=== PATIENT | female | born 1955 | race Caucasian/White ===

== ENCOUNTER 2024-11-28 13:23 | Inpatient (IN) | payer OTHER ==
--- NOTE | 2024-11-28 14:12 | ED ---
Chest Pain HPI - General Source: patient, RN notes reviewed Mode of arrival: wheelchair Limitations: no limitations - History of Present Illness MD Complaint: chest pain <Ken Adame - Last Filed: 11/28/24 14:11> - General Source: patient, RN notes reviewed, old records reviewed Mode of arrival: wheelchair Limitations: no limitations - History of Present Illness Complaint: chest pain, other (Dizziness lightheadedness and near syncopal) -: hour(s) Onset: awoke with symptoms Pain Location: left chest Severity: moderate Severity scale (1-10): 4 Quality: tightness, aching, heaviness Consistency: constant Improves With: nothing Worsens With: nothing Other Symptoms: palpitations Treatments Prior to Arrival: none <Andrew Wheeler - Last Filed: 12/06/24 21:43> - General Chief Complaint: Chest Pain Stated Complaint: Chest pain Time Seen by Provider: 11/28/24 13:40 - History of Present Illness Initial Comments: This is a 69-year-old female with history of AMI and CVA last year presenting with chest pain (8) since this morning. Patient describes pain as pressure across her bilateral chest with associated lightheadedness and shortness of breath radiating to her neck. Endorses use of 2 nitroglycerin with no relief. (Ken Adame) This is a 69-year-old female history of CVA history of NH coming in with chest pain that started this morning with lightheadedness dizziness feeling she was going to pass out this morning persistent shortness of breath here in the ER (Andrew Wheeler) - Related Data Home Medications Medication Instructions Recorded Confirmed ARIPiprazole [Abilify] 2 mg PO DAILY 11/29/24 11/29/24 Albuterol Inhaler [Ventolin Hfa 1 puff INHALATION RT-Q4H PRN 11/29/24 11/29/24 Inhaler] Ammonium Lactate Lotion 1 applic TOPICAL BID 11/29/24 11/29/24 [Lac-Hydrin 12% Lotion] Artificial Tears-Hypromellose 1 drop BOTH EYES Q4H PRN 11/29/24 11/29/24 [Artificial Tear Drops] Aspirin EC [Ecotrin Low Dose] 81 mg PO DAILY 11/29/24 11/29/24 Atorvastatin [Lipitor] 80 mg PO HS 11/29/24 11/29/24 Biotin 10 mg PO DAILY 11/29/24 11/29/24 Buprenorphine [Butrans 20 MCG/HOUR] 1 patch TRANSDERM TU 11/29/24 11/29/24 Cholecalciferol (Vitamin D3) 125 mcg PO DAILY 11/29/24 11/29/24 [Vitamin D3 (125 MCG = 5,000 IU)] Empagliflozin [Jardiance] 10 mg PO DAILY 11/29/24 11/29/24 Escitalopram [Lexapro] 20 mg PO DAILY 11/29/24 11/29/24 Famotidine [Pepcid] 20 mg PO DAILY 11/29/24 11/29/24 Ferrous Sulfate [Iron (65 MG 325 mg PO DAILY 11/29/24 11/29/24 Elemental)] Gabapentin 800 mg PO TID 11/29/24 11/29/24 Levocetirizine Dihydrochloride 5 mg PO DAILY 11/29/24 11/29/24 [Xyzal] Melatonin 5 mg PO HS 11/29/24 11/29/24 Multivit-Min/FA/Lycopen/Lutein 1 tab PO DAILY 11/29/24 11/29/24 [Centrum Silver Tablet] Nitroglycerin Sl Tabs [Nitrostat] 0.4 mg SL Q5M PRN 11/29/24 11/29/24 Nystatin 100,000 Unit/gm Powd 1 applic TOPICAL BID 11/29/24 11/29/24 [Mycostatin Powder] Tirzepatide [Mounjaro] 2.5 mg SQ SA 11/29/24 11/29/24 traZODone HCL 100 mg PO HS 11/29/24 11/29/24 Previous Rx's Medication Instructions Recorded amLODIPine [Norvasc] 5 mg PO DAILY #60 tab 12/01/24 Allergies Allergy/AdvReac Type Severity Reaction Status Date / Time duloxetine [From Cymbalta] Allergy Rash/Hives Verified 11/29/24 10:42 sitagliptin [From Januvia] Allergy Rash/Hives Verified 11/29/24 10:42 Review of Systems ROS Other: All systems not noted in ROS Statement are negative. <Ken Adame - Last Filed: 11/28/24 14:11> ROS Other: All systems not noted in ROS Statement are negative. <Roskopp,Andrew B - Last Filed: 12/06/24 21:43> ROS Statement: Those systems with pertinent positive or pertinent negative responses have been documented in the HPI. EKG Findings - EKG Comments: EKG Findings:: EKG is sinus 66 MI 169 QRS 97 QTc 423 - EKG Results: EKG: interpreted by ERMD, no acute changes (EKG repeated sinus 96 MI 208 QRS 99 QTc 389) <Andrew Wheeler - Last Filed: 12/06/24 21:43> Past Medical History Past Medical History: Asthma, Diabetes Mellitus History of Any Multi-Drug Resistant Organisms: None Reported Past Surgical History: No Surgical Hx Reported Past Psychological History: No Psychological Hx Reported Smoking Status: Never smoker Past Alcohol Use History: None Reported Past Drug Use History: None Reported <Ken Adame - Last Filed: 11/28/24 14:11> General Exam Limitations: no limitations <Ken Adame - Last Filed: 11/28/24 14:11> General appearance: alert, in no apparent distress Head exam: Present: atraumatic, normocephalic, normal inspection Eye exam: Present: normal appearance, PERRL, EOMI. Absent: scleral icterus, conjunctival injection, periorbital swelling ENT exam: Present: normal exam, mucous membranes moist Neck exam: Present: normal inspection. Absent: tenderness, meningismus, lymphadenopathy Respiratory exam: Present: normal lung sounds bilaterally. Absent: respiratory distress, wheezes, rales, rhonchi, stridor Cardiovascular Exam: Present: regular rate, normal rhythm, normal heart sounds. Absent: systolic murmur, diastolic murmur, rubs, gallop, clicks GI/Abdominal exam: Present: soft, normal bowel sounds. Absent: distended, tenderness, guarding, rebound, rigid Extremities exam: Present: normal inspection, full ROM, normal capillary refill. Absent: tenderness, pedal edema, joint swelling, calf tenderness Back exam: Present: normal inspection Neurological exam: Present: alert, oriented X3, CN II-XII intact Psychiatric exam: Present: normal affect, normal mood Skin exam: Present: warm, dry, intact, normal color. Absent: rash <Andrew Wheeler - Last Filed: 12/06/24 21:43> - General Exam Comments Initial Comments: Visual Physical Exam Vital signs reviewed General: Well-appearing, nontoxic patient appears slightly distressed Head: Normocephalic, atraumatic Eyes: PERRLA, EOMI ENT: Airway patent Chest: Nonlabored breathing Skin: No visual rash, normal skin tone Neuro: Alert and oriented 3 Musculoskeletal: No gross abnormalities (Ken Adame) Course <Andrew Wheeler - Last Filed: 12/06/24 21:43> Vital Signs 11/28/24 11/28/24 11/28/24 13:41 16:00 17:48 Temperature 98.8 F 100.5 F H 99.9 F H Pulse Rate 69 94 Respiratory 20 20 Rate Blood Pressure 114/72 148/75 O2 Sat by Pulse 94 L 87 L Oximetry 11/28/24 11/28/24 11/29/24 17:54 20:55 00:30 Temperature 99.9 F H 99.1 F Pulse Rate 84 61 Respiratory 14 16 Rate Blood Pressure 102/56 103/63 O2 Sat by Pulse 91 L 96 96 Oximetry 11/29/24 11/29/24 11/29/24 06:00 08:16 11:59 Temperature 99.0 F 98.3 F Pulse Rate 65 73 60 Respiratory 13 22 20 Rate Blood Pressure 119/53 108/39 99/59 O2 Sat by Pulse 97 98 96 Oximetry 11/29/24 11/29/24 14:07 17:07 Temperature 97.5 F L Pulse Rate 68 73 Respiratory 20 19 Rate Blood Pressure 95/44 124/63 O2 Sat by Pulse 96 97 Oximetry - Reevaluation(s) Reevaluation #1: 11/28/24 17:07 Medical records reviewed (Andrew Wheeler) Reevaluation #2: 11/28/24 17:08 Patient symptoms unchanged still with chest pain here in the ER (Andrew Wheeler) Reevaluation #3: 11/28/24 17:08 Patient informed of results questions answered (Andrew Wheeler) Reevaluation #4: Was pt. sent in by a medical professional or institution (, PA, ELECTRONIC WARFARE SPECIALIST, urgent care, hospital, or fci...) When possible be specific @ -no Did you speak to anyone other than the patient for history (EMS, parent, family, police, friend...)? What history was obtained from this source @ -no Did you review nursing and triage notes (agree or disagree)? Why? @ -agree Are old charts reviewed (outside hosp., previous admission, EMS record, old EKG, old radiological studies, urgent care reports/EKG's, fci records)? Report findings @ -yes Differential Diagnosis (chest pain, altered mental status, abdominal pain women, abdominal pain men, vaginal bleeding, weakness, fever, dyspnea, syncope, headache, dizziness, GI bleed, back pain, seizure, CVA, palpatations, mental health, musculoskeletal)? @ -prior EKG interpreted by me (3pts min.). @ -yes X-rays interpreted by me (1pt min.). @ -yes negative for acute disease CT interpreted by me (1pt min.). @ -no U/S interpreted by me (1pt. min.). @ -no What testing was considered but not performed or refused? (CT, X-rays, U/S, labs)? Why? @ -none What meds were considered but not given or refused? Why? @ -none Did you discuss the management of the patient with other professionals (professionals i.e. Dr., PA, ELECTRONIC WARFARE SPECIALIST, lab, RT, psych nurse, social service worker, retina subspecialist, teacher, protective services officer, field case manager)? Give summary @ -no Was smoking cessation discussed for >3mins.? @ -no Was critical care preformed (if so, how long)? @ -yes31 Were there social determinants of health that impacted care today? How? (Homelessness, low income, unemployed, alcoholism, drug addiction, transportation, low edu. Level, literacy, decrease access to med. care, prison, rehab)? @ -none Was there de-escalation of care discussed even if they declined (Discuss DNR or withdrawal of care, Hospice)? DNR status @ -no What co-morbidities impacted this encounter? (DM, HTN, Smoking, COPD, CAD, Cancer, CVA, ARF, Chemo, Hep., AIDS, mental health diagnosis, sleep apnea, morbid obesity)? @ -none Was patient admitted / discharged? Hospital course, mention meds given and route, prescriptions, significant lab abnormalities, going to OR and other pertinent info. @ - 69 female to ER with history of CAD history of CVA coming in with acute chest pain will admit for chest pain observation Admitted Undiagnosed new problem with uncertain prognosis? @ -no Drug Therapy requiring intensive monitoring for toxicity (Heparin, Nitro, Insulin, Cardizem)? @ -no Were any procedures done? @ -no Diagnosis/symptom? @ -Acute chest pain Acute, or Chronic, or Acute on Chronic? @ -Acute Uncomplicated (without systemic symptoms) or Complicated (systemic symptoms)? @ -Complicated Side effects of treatment? @ -no Exacerbation, Progression, or Severe Exacerbation? @ -exacerbation Poses a threat to life or bodily function? How? (Chest pain, [place], NH, pneumonia, PE, COPD, DKA, ARF, appy, cholecystitis, CVA, Diverticulitis, Homicidal, Suicidal, threat to staff... and all critical care pts) @ -yes extremes of age (Andrew Wheeler) Reevaluation #5: Differential Chest Pain: Stable Angina, Unstable Angina, STEMI, NSTEMI Aortic Dissection, Pneumothorax, Musculoskeletal, Esophageal Spasm GERD, Cholecystitis, Pancreatitis, Zoster, this is not meant to be an all-inclusive list. Differential Dizziness: Benign paroxysmal positional Vertigo, Meniere's disease, otitis media, acoustic neuroma, vertebrobasilar insufficiency, cerebellar stroke, encephalitis, hypovolemic, arrhythmia, coronary artery syndrome, anemia, this is not meant to be an all-inclusive list (Andrew Wheeler) - Consultations Consultation #1: Spoke with admitting physicians who agreed to admit this patient (Andrew Wheeler) Chest Pain MDM <Ken Adame - Last Filed: 11/28/24 14:11> <Andrew Wheeler - Last Filed: 12/06/24 21:43> - MDM I completed the quick note portion of this chart signed KELVIN Tucker (Ken Adame) 69 female to ER with history of CAD history of CVA coming in with acute chest pain will admit for chest pain observation (Andrew Wheeler) Critical Care Time Critical Care Time: Yes Total Critical Care Time: 31 <Andrew Wheeler - Last Filed: 12/06/24 21:43> Disposition <Ken Adame - Last Filed: 11/28/24 14:11> Is patient prescribed a controlled substance at d/c from ED?: No Time of Disposition: 17:00 <Andrew Wheeler - Last Filed: 12/06/24 21:43> Clinical Impression: Chest pain, Unstable angina pectoris Disposition: ADMITTED IP TO THIS HOSP Condition: Serious
[2024-11-28 14:41] LABS: Basophils % (A) 0 %; Eosinophils # (A) 0.1 k/uL (0-0.7); Eosinophils % (A) 1 %; HCT 41.8 % (34.0-46.0); HGB 13.5 gm/dL (11.4-16.0); Lymphocytes # (A) 0.8 k/uL (1.0-4.8); Lymphocytes % (A) 9 %; MCH 30.3 pg (25.0-35.0); MCHC 32.3 g/dL (31.0-37.0); MCV 94.1 fL (80.0-100.0); Mean Platelet Volume 7.9; Monocytes # (A) 0.4 k/uL (0-1.0); Monocytes % (A) 4 %; Neutrophils # (A) 7.2 k/uL (1.3-7.7); Neutrophils % (A) 84 %; Platelet Count 113 k/uL (150-450); RBC 4.44 m/uL (3.80-5.40); RDW 14.2 % (11.5-15.5); WBC 8.6 k/uL (3.8-10.6)
[2024-11-28 14:54] LABS: ALT 20 U/L (4-34); African American GFR (CKD) 40 (>60 ml/min/1.73 sqM); Albumin 3.9 g/dL (3.5-5.0); Anion Gap 10 mmol/L; Blood Urea Nitrogen 41 mg/dL (7-17); Calcium 9.2 mg/dL (8.4-10.2); Carbon Dioxide 25 mmol/L (22-30); Chloride 100 mmol/L (98-107); Glucose 126 mg/dL (74-99); Non-African American GFR(CKD) 35 (>60 ml/min/1.73 sqM); Sodium 135 mmol/L (137-145); Total Bilirubin 0.5 mg/dL (0.2-1.3); Total Protein 6.7 g/dL (6.3-8.2)
[2024-11-28 14:56] LABS: Partial Thromboplastin Time 23.8 sec (22.0-30.0)
[2024-11-28 15:02] LABS: NT-Pro-B-Type Natriuretic Pept 2210 pg/mL
--- NOTE | 2024-11-28 15:02 | XR ---
EXAMINATION TYPE: XR chest 2V DATE OF EXAM: 11/28/2024 2:27 PM COMPARISON: None CLINICAL INDICATION: Female, 69 years old with history of Chest Pain; TECHNIQUE: XR chest 2V Frontal and lateral views of the chest. FINDINGS: Lungs/Pleura: There is no evidence of pleural effusion, focal consolidation, or pneumothorax. Pulmonary vascularity: Unremarkable. Heart/mediastinum: Cardiomediastinal silhouette is unremarkable. Musculoskeletal: No acute osseous pathology. Right proximal shoulder fixation hardware appears intact . IMPRESSION: No acute cardiopulmonary disease/process. [facility] Ricci Alvarez, , 11/28/2024 3:00 PM
[2024-11-28 15:03] LABS: AST 31 U/L (14-36); Alkaline Phosphatase 62 U/L (38-126); Magnesium 2.3 mg/dL (1.6-2.3); Potassium 5.3 mmol/L (3.5-5.1)
[2024-11-28] MEDS ORDERED: NALOXONE 0.4 MG/ML 1 ML VIAL IV PRN (17:09)
[2024-11-28] MEDS ORDERED: ONDANSETRON 4 MG/2 ML VIAL IVP PRN (17:09)
[2024-11-28] MEDS: SODIUM CHLORIDE 0.9% 1,000 ML IV SCH (17:16)
[2024-11-28] MEDS: MORPHINE SULFATE 4 MG/ML SYRINGE IV PRN (17:16)
[2024-11-29 07:38] LABS: Basophils % (A) 0 %; Eosinophils # (A) 0.1 k/uL (0-0.7); Eosinophils % (A) 1 %; HCT 34.1 % (34.0-46.0); HGB 11.3 gm/dL (11.4-16.0); Lymphocytes # (A) 1.4 k/uL (1.0-4.8); Lymphocytes % (A) 19 %; MCH 31.2 pg (25.0-35.0); MCHC 33.1 g/dL (31.0-37.0); MCV 94.5 fL (80.0-100.0); Mean Platelet Volume 8.2; Monocytes # (A) 0.6 k/uL (0-1.0); Monocytes % (A) 7 %; Neutrophils # (A) 5.5 k/uL (1.3-7.7); Neutrophils % (A) 72 %; Platelet Count 101 k/uL (150-450); RBC 3.61 m/uL (3.80-5.40); RDW 14.2 % (11.5-15.5); WBC 7.6 k/uL (3.8-10.6)
[2024-11-29] MEDS ORDERED: NITROGLYCERIN SL TABS 0.4 MG TAB SUBLINGUAL PRN (07:38)
[2024-11-29] MEDS: ATORVASTATIN 80 MG TAB PO SCH (08:23)
[2024-11-29] MEDS: ASPIRIN 81 MG PO SCH (08:23)
[2024-11-29] MEDS: METOPROLOL TARTRATE 12.5 MG TAB PO SCH (08:23)
[2024-11-29] MEDS: ACETAMINOPHEN TAB 325 MG TAB PO PRN (08:24)
[2024-11-29] MEDS ORDERED: ALBUTEROL NEBULIZED 2.5 MG/3 ML INHALATION PRN (09:16)
--- NOTE | 2024-11-29 09:16 | P.HPIM ---
History of Present Illness H&P Date: 11/29/24 Chief Complaint: chest pain 69-year-old woman with medical history of asthma, diabetes presented for evaluation of chest pain. Patient says that she started experiencing pain yesterday morning. Upon waking up and getting out of bed, she immediately felt dizzy and then started to experience some onset of substernal chest pain rating across her chest. She says that the pain is worse in the sitting up position, particularly noted when she was eating breakfast. She said the pain was associated with the position she was sitting in and not with the food that she was consuming. She also reports dizziness, lightheadedness. She denies shortness of breath, palpitations, diaphoresis, syncope, presyncope. In the emergency room, patient was afebrile, 102/56, heart rate 84, 96% on 2 L nasal cannula. CBC was remarkable for thrombocytopenia to 113. Basic metabolic panel showed sodium of 135, potassium 5.3, BUN of 41, creatinine of 1.53. Liver function tests are unremarkable. Troponin was less than 0.012 and trended to less than 0.012 twice. BNP was 2210. Coags are unremarkable. Chest x-ray shows poor inspiratory effort, increased pulmonary vascularity, borderline cardiomegaly. EKG showed sinus arrhythmia, appropriate axis, no STT wave changes that are concerning for ischemia. All Systems reviewed and pertinent positives and negatives noted in HPI, all other symptoms are negative Gen: In NAD, non-toxic HEENT: normocephalic, atraumatic, hearing acuity is intant, mucous membranes moist CVS: perfusing all extremities well, no pitting edema, reproducible chest pain to palpation Respiratory: symmetric chest expansion, no accessory muscle use, GI: soft, NTTP, ND, : no suprapubic tenderness, no CVA tenderness MSK/Derm: no rashes, cyanosis Neuro: CN II-XII intact, no motor weakness, Psych: cooperative, euthymic mood, judgment and insight is intact Labs and imaging as above Hospital course: Assessment/plan: Chest pain -Admit to observation, telemetry -Cardiology consulted -Aspirin, statin, beta-susan -TSH, A1c, lipid panel -Echocardiogram Asthma Diabetes -A1c is pending as above -Albuterol as needed Patient is full code Past Medical History Past Medical History: Asthma, Diabetes Mellitus History of Any Multi-Drug Resistant Organisms: None Reported Past Surgical History: No Surgical Hx Reported Past Psychological History: No Psychological Hx Reported Smoking Status: Never smoker Past Alcohol Use History: None Reported Past Drug Use History: None Reported Medications and Allergies Allergies Allergy/AdvReac Type Severity Reaction Status Date / Time duloxetine [From Cymbalta] Allergy Rash/Hives Verified 11/28/24 13:44 sitagliptin [From Januvia] Allergy Rash/Hives Verified 11/28/24 13:44 Physical Exam Osteopathic Statement: *. No significant issues noted on an osteopathic structural exam other than those noted in the History and Physical/Consult. Vitals: Vital Signs Temp Pulse Resp BP Pulse Ox 11/29/24 08:16 98.3 F 73 22 108/39 98 11/29/24 06:00 99.0 F 65 13 119/53 97 11/29/24 00:30 99.1 F 61 16 103/63 96 11/28/24 20:55 99.9 F H 84 14 102/56 96 11/28/24 17:54 91 L 11/28/24 17:48 99.9 F H 94 20 148/75 87 L 11/28/24 16:00 100.5 F H 11/28/24 13:41 98.8 F 69 20 114/72 94 L Results CBC & Chem 7: 11/29/24 06:48 11/28/24 14:19 Labs: Abnormal Lab Results - Last 24 Hours (Table) 11/28/24 11/28/24 11/29/24 Range/Units 14:19 14:19 06:48 RBC 3.61 L (3.80-5.40) m/uL Hgb 11.3 L (11.4-16.0) gm/dL Plt Count 113 L 101 L (150-450) k/uL Lymphocytes # 0.8 L (1.0-4.8) k/uL Sodium 135 L (137-145) mmol/L Potassium 5.3 H (3.5-5.1) mmol/L BUN 41 H (7-17) mg/dL Creatinine 1.53 H (0.52-1.04) mg/dL Glucose 126 H (74-99) mg/dL
[2024-11-29 10:30] LABS: Chol/HDL Ratio 3.15 Ratio; LDL Cholesterol,Calculated 64.7 mg/dL (0.0-131.0); VLDL Calculation 15.08 mg/dL (5.00-40.00)
[2024-11-29 10:35] LABS: ALT 14 U/L (8-44); AST 18 U/L (13-35); Albumin 3.3 g/dL (3.8-4.9); Albumin/Globulin Ratio 1.43 Ratio (1.60-3.17); Alkaline Phosphatase 65 U/L (41-126); BUN/Creat Ratio 20.95 Ratio (12.00-20.00); Blood Urea Nitrogen 39.8 mg/dL (9.0-27.0); Calcium 8.6 mg/dL (8.7-10.3); Carbon Dioxide 24.8 mmol/L (21.6-31.8); Chloride 105 mmol/L (96-109); Globulin 2.3 g/dL (1.6-3.3); Glucose 121 mg/dL (70-110); Magnesium 2.2 mg/dL (1.5-2.4); Phosphorus 4.1 mg/dL (2.4-5.1); Sodium 138 mmol/L (135-145); Total Bilirubin 0.5 mg/dL (0.3-1.2); Total Protein 5.6 g/dL (6.2-8.2)
[2024-11-29] MEDS ORDERED: ARTIFICIAL TEARS-HYPROMELLOSE DROPS 15 ML BTL BOTH EYES PRN (12:34)
[2024-11-29] MEDS ORDERED: NON FORMULARY DRUG (Albuterol Inhaler 90 MCG Puff) INHALATION PRN (12:34)
--- NOTE | 2024-11-29 12:35 | P.CRDCN ---
History of Present Illness History of present illness: HISTORY OF PRESENT ILLNESS: This is a 69-year-old female with a past medical history significant for asthma, diabetes, obesity, seizure, and reported CVA and NE. 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 We have been asked to see the patient in consultation for chest pain. Patient examined at the bedside in the emergency room. Patient states yesterday after using the bathroom she had had chest discomfort. She states the pain is in the middle of her chest and then radiated across the middle of her back and into her neck. She does report feeling diaphoretic. She denies any dizziness or lightheadedness. Patient states that she was hospitalized at [facility] in January 2023. She states that she had a heart attack, CVA, and a seizure during that admission. She states that she did not undergo cardiac catheterization. She does report that she was told that she had a tight valve but did not require surgical intervention at that time. The patient states that she is unable to ambulate due to foot drop. She is a non- smoker. DIAGNOSTICS: - EKG reveals sinus mechanism with no signs of acute ischemia. - Chest xray negative for acute process. - Laboratory data: WBC 7.6. Hemoglobin 11.3. Platelet count 101. Sodium 135. Potassium 5.3. BUN 41. Creatinine 1.53. Magnesium 2.3. Troponin negative x 3. proBNP 2210 - Current home cardiac medications include none. - No previous echocardiogram, stress test, or cardiac catheterization available in EMR for review REVIEW OF SYSTEMS: At the time of my exam: CONSTITUTIONAL: Denies fever or chills. HEENT: Denies blurred vision, vision changes, or eye pain. Denies hemoptysis CARDIOVASCULAR: Denies chest pain. Denies orthopnea. Denies PND. Denies palpitations RESPIRATORY: Denies shortness of breath. GASTROINTESTINAL: Denies abdominal pain. Denies nausea or vomiting. HEMATOLOGIC: Denies bleeding disorders. GENITOURINARY: Denies any blood in urine. SKIN: Denies pruitis. Denies rash. PHYSICAL EXAM: VITAL SIGNS: Reviewed. GENERAL: Well-developed in no acute distress. HEENT: Head is normocephalic. Pupils are equal, round. Sclerae anicteric. Mucous membranes of the mouth are moist. Neck supple. No JVD or thyromegaly LUNGS: Respirations even and unlabored. Lungs essentially clear to auscultation bilaterally. HEART: Regular rate and rhythm. S1 and S2 heard. Systolic murmur with diminished S2. ABDOMEN: Soft. Nondistended. Nontender. EXTREMITIES: Normal range of motion. No clubbing or cyanosis. Peripheral pulses intact. No lower extremity edema NEUROLOGIC: Awake and alert. Oriented x 3. ASSESSMENT: Chest pain Systolic murmur Acute kidney injury History of asthma History of diabetes Morbid obesity: BMI 44.9 History of NE per patient without previous cardiac catheterization History of CVA, 2022 History of seizure, 2022 PLAN: An acute coronary event has been ruled out Patient with significant systolic murmur upon auscultation. Obtain 2D echo to assess cardiac structure and function Resume home cardiac medications Hold losartan and Farxiga. Repeat kidney function in a.m. Further recommendations pending patient course Nurse practitioner note has been reviewed by physician. Signing provider agrees with the documented findings, assessment, and plan of care documented by [employer] as a scribe. Past Medical History Past Medical History: Asthma, Diabetes Mellitus History of Any Multi-Drug Resistant Organisms: None Reported Past Surgical History: No Surgical Hx Reported Past Psychological History: No Psychological Hx Reported Smoking Status: Never smoker Past Alcohol Use History: None Reported Past Drug Use History: None Reported Medications and Allergies Home Medications Medication Instructions Recorded Confirmed Type ARIPiprazole [Abilify] 2 mg PO DAILY 11/29/24 11/29/24 History Albuterol Inhaler [Ventolin Hfa 1 puff INHALATION RT-Q4H PRN 11/29/24 11/29/24 History Inhaler] Ammonium Lactate Lotion 1 applic TOPICAL BID 11/29/24 11/29/24 History [Lac-Hydrin 12% Lotion] Amoxic-Pot Clav 875-125Mg 1 tab PO BID 11/29/24 11/29/24 History [Augmentin 875-125] Artificial Tears-Hypromellose 1 drop BOTH EYES Q4H PRN 11/29/24 11/29/24 History [Artificial Tear Drops] Aspirin EC [Ecotrin Low Dose] 81 mg PO DAILY 11/29/24 11/29/24 History Atorvastatin [Lipitor] 80 mg PO HS 11/29/24 11/29/24 History Biotin 10 mg PO DAILY 11/29/24 11/29/24 History Buprenorphine [Butrans 20 MCG/HOUR] 1 patch TRANSDERM TU 11/29/24 11/29/24 History Cholecalciferol (Vitamin D3) 125 mcg PO DAILY 11/29/24 11/29/24 History [Vitamin D3 (125 MCG = 5,000 IU)] Empagliflozin [Jardiance] 10 mg PO DAILY 11/29/24 11/29/24 History Escitalopram [Lexapro] 20 mg PO DAILY 11/29/24 11/29/24 History Famotidine [Pepcid] 20 mg PO DAILY 11/29/24 11/29/24 History Ferrous Sulfate [Feosol] 325 mg PO DAILY 11/29/24 11/29/24 History Gabapentin 800 mg PO TID 11/29/24 11/29/24 History Levocetirizine Dihydrochloride 5 mg PO DAILY 11/29/24 11/29/24 History [Xyzal] Losartan [Cozaar] 25 mg PO DAILY 11/29/24 11/29/24 History Melatonin 5 mg PO HS 11/29/24 11/29/24 History Multivit-Min/FA/Lycopen/Lutein 1 tab PO DAILY 11/29/24 11/29/24 History [Centrum Silver Tablet] Nitroglycerin Sl Tabs [Nitrostat] 0.4 mg SL Q5M PRN 11/29/24 11/29/24 History Nystatin 100,000 Unit/gm Powd 1 applic TOPICAL BID 11/29/24 11/29/24 History [Mycostatin Powder] Tirzepatide [Mounjaro] 2.5 mg SQ SA 11/29/24 11/29/24 History traZODone HCL 100 mg PO HS 11/29/24 11/29/24 History Allergies Allergy/AdvReac Type Severity Reaction Status Date / Time duloxetine [From Cymbalta] Allergy Rash/Hives Verified 11/29/24 10:42 sitagliptin [From Januvia] Allergy Rash/Hives Verified 11/29/24 10:42 Physical Exam Vitals: Vital Signs Temp Pulse Resp BP Pulse Ox 11/29/24 08:16 98.3 F 73 22 108/39 98 11/29/24 06:00 99.0 F 65 13 119/53 97 11/29/24 00:30 99.1 F 61 16 103/63 96 11/28/24 20:55 99.9 F H 84 14 102/56 96 11/28/24 17:54 91 L 11/28/24 17:48 99.9 F H 94 20 148/75 87 L 11/28/24 16:00 100.5 F H 11/28/24 13:41 98.8 F 69 20 114/72 94 L Results 11/29/24 06:48 11/29/24 06:48 Cardiac Enzymes 11/28/24 11/28/24 11/28/24 Range/Units 14:19 14:19 17:33 AST 31 (14-36) U/L Troponin I <0.012 <0.012 (0.000-0.034) ng/mL 11/28/24 Range/Units 21:09 AST (14-36) U/L Troponin I <0.012 (0.000-0.034) ng/mL Coagulation 11/28/24 Range/Units 14:19 PT 11.0 (10.0-12.5) sec APTT 23.8 (22.0-30.0) sec CBC 11/28/24 11/29/24 Range/Units 14:19 06:48 WBC 8.6 7.6 (3.8-10.6) k/uL RBC 4.44 3.61 L (3.80-5.40) m/uL Hgb 13.5 11.3 L (11.4-16.0) gm/dL Hct 41.8 34.1 (34.0-46.0) % Plt Count 113 L 101 L (150-450) k/uL Comprehensive Metabolic Panel 11/28/24 Range/Units 14:19 Sodium 135 L (137-145) mmol/L Potassium 5.3 H (3.5-5.1) mmol/L Chloride 100 (98-107) mmol/L Carbon Dioxide 25 (22-30) mmol/L BUN 41 H (7-17) mg/dL Creatinine 1.53 H (0.52-1.04) mg/dL Glucose 126 H (74-99) mg/dL Calcium 9.2 (8.4-10.2) mg/dL AST 31 (14-36) U/L ALT 20 (4-34) U/L Alkaline Phosphatase 62 (38-126) U/L Total Protein 6.7 (6.3-8.2) g/dL Albumin 3.9 (3.5-5.0) g/dL Current Medications Generic Name Dose Route Start Last Admin Trade Name Senq PRN Reason Stop Dose Admin Acetaminophen 650 mg 11/29/24 07:38 11/29/24 08:24 Acetaminophen Tab 325 Mg Tab PO 650 mg Q6HR PRN Administration Mild Pain or Fever > 100.5 Aspirin 81 mg 11/29/24 09:00 11/29/24 08:23 Aspirin 81 Mg PO 81 mg DAILY JAKE Administration Atorvastatin Calcium 80 mg 11/29/24 09:00 11/29/24 08:23 Atorvastatin 80 Mg Tab PO 80 mg DAILY JAKE Administration Sodium Chloride 1,000 mls @ 75 mls/hr 11/28/24 17:15 11/29/24 08:23 Saline 0.9% IV Not Given .[id number] JAKE Morphine Sulfate 4 mg 11/28/24 17:09 11/28/24 17:16 Morphine Sulfate 4 Mg/Ml Syringe IV 4 mg Q4HR PRN Administration Severe Pain (Scale 7 to 10) Naloxone HCl 0.2 mg 11/28/24 17:09 Naloxone 0.4 Mg/Ml 1 Ml Vial IV Q2M PRN Opioid Reversal Nitroglycerin 0.4 mg 11/29/24 07:38 Nitroglycerin Sl Tabs 0.4 Mg Tab SUBLINGUAL Q5M PRN Chest Pain Ondansetron HCl 4 mg 11/28/24 17:09 Ondansetron 4 Mg/2 Ml Vial IVP Q8HR PRN Nausea And Vomiting 11/29/24 06:48 11/28/24 14:19
[2024-11-29] MEDS: ARIPiprazole 2 MG TAB PO SCH (14:08)
[2024-11-29] MEDS: FERROUS SULFATE 325 MG TAB PO SCH (14:08)
[2024-11-29] MEDS: GABAPENTIN 400 MG CAP PO SCH (17:06)
[2024-11-29] MEDS: MELATONIN 5 MG TABLET PO SCH (20:09)
[2024-11-29] MEDS: traZODone HCL 100 MG TAB PO SCH (20:09)
[2024-11-29] MEDS: AMMONIUM LACTATE 12% LOTION 225 GM BTL TOPICAL SCH (21:49)
[2024-11-30 04:23] LABS: African American GFR (CKD) 37 (>60 ml/min/1.73 sqM); Anion Gap 5 mmol/L; Blood Urea Nitrogen 42 mg/dL (7-17); Calcium 8.5 mg/dL (8.4-10.2); Carbon Dioxide 25 mmol/L (22-30); Chloride 107 mmol/L (98-107); Glucose 106 mg/dL (74-99); Non-African American GFR(CKD) 32 (>60 ml/min/1.73 sqM); Potassium 4.9 mmol/L (3.5-5.1); Sodium 137 mmol/L (137-145)
[2024-11-30 05:23] LABS: T4, Free (Free Thyroxine) 1.08 ng/dL (0.78-2.19)
[2024-11-30] MEDS: ESCITALOPRAM 20 MG TAB PO SCH (08:19)
[2024-11-30] MEDS: CHOLECALCIFEROL 125 MCG (5000 IU) TABLET PO SCH (08:20)
[2024-11-30] MEDS: MULTIVITAMINS, THERA 1 EACH TAB PO SCH (08:20)
[2024-11-30] MEDS: LORATADINE 10 MG TAB PO SCH (08:20)
[2024-11-30] MEDS: FAMOTIDINE 20 MG TAB PO SCH (08:20)
[2024-11-30] MEDS: NON FORMULARY DRUG (Buprenorphine [Butrans 20 Mcg/Hour] 20 MCG/HOUR Patch) TRANSDERM SCH (08:21)
[2024-11-30] MEDS ORDERED: DAPAGLIFLOZIN PROPANEDIOL 5 MG TABLET PO SCH (09:00)
[2024-11-30] MEDS ORDERED: NON FORMULARY DRUG (Biotin [Biotin] 5 MG Capsule) PO SCH (09:00)
[2024-11-30] MEDS ORDERED: LOSARTAN 25 MG TAB PO SCH (09:00)
--- NOTE | 2024-11-30 09:51 | CA ---
Transthoracic Echo Report Name: Delia Kurtz Age: 69 Gender: F : 1955 Exam Date: 11/29/2024 17:38 Exam Location: [place] [facility] Ht (in): 60 Wt (lb): 230 Ordering Physician: Rahat Caldwell MD Attending/Referring Phys: Driver License Technician Cristel Phillip RDCS Procedure CPT: Indications: Chest Pain Cardiac Hx: Technical Quality: Technically difficult study Contrast 1: Definity Total Dose (mL): 1 Contrast 2: Total Dose (mL): MEASUREMENTS (Male / Female) Normal Values 2D ECHO LV Diastolic Diameter PLAX 5.2 cm 4.2 - 5.9 / 3.9 - 5.3 cm LV Systolic Diameter PLAX 4.3 cm IVS Diastolic Thickness 0.9 cm 0.6 - 1.0 / 0.6 - 0.9 cm LVPW Diastolic Thickness 0.9 cm 0.6 - 1.0 / 0.6 - 0.9 cm LV Relative Wall Thickness 0.4 LVOT Diameter 2.2 cm Aortic Root Diameter 2.9 cm LV Diastolic Volume MOD BP 131.3 cm??? 67 - 155 / 56 - 104 cm??? LV Systolic Volume MOD BP 47.6 cm??? 22 - 58 / 19 - 49 cm??? LV Ejection Fraction MOD BP 63.7 % >= 55 % LV Cardiac Index MOD BP 2703.6 cm???/min???m??? LV Diastolic Volume MOD 4C 124.6 cm??? LV Systolic Volume MOD 4C 53.5 cm??? LV Ejection Fraction MOD 4C 57.1 % LV Cardiac Index MOD 4C 2297.0 cm???/min???m??? LV Diastolic Length 4C 8.4 cm LV Systolic Length 4C 7.1 cm LV Diastolic Volume MOD 2C 134.1 cm??? LV Systolic Volume MOD 2C 42.4 cm??? LV Ejection Fraction MOD 2C 68.4 % LV Cardiac Index MOD 2C 2965.0 cm???/min???m??? LV Diastolic Length 2C 8.7 cm LV Systolic Length 2C 7.2 cm LA Volume 74.5 cm??? 18 - 58 / 22 - 52 cm??? LA Volume Index 34.4 cm???/m??? 16 - 28 cm???/m??? Ascending Aorta Diameter 3.4 cm DOPPLER AV Peak Velocity 427.2 cm/s AV Peak Gradient 73.0 mmHg AV Mean Velocity 318.3 cm/s AV Mean Gradient 44.5 mmHg AV Velocity Time Integral 114.5 cm LVOT Peak Velocity 104.7 cm/s LVOT Peak Gradient 4.4 mmHg LVOT Velocity Time Integral 24.7 cm LVOT Stroke Volume 97.9 cm??? LVOT Stroke Volume Index 49.4 ml/m??? LVOT Cardiac Index 3162.8 cm???/min???m??? AV Area Cont Eq vti 0.9 cm??? AV Area Cont Eq pk 1.0 cm??? MV Area PHT 4.2 cm??? Mitral E Point Velocity 93.6 cm/s Mitral A Point Velocity 104.4 cm/s Mitral E to A Ratio 0.9 MV Deceleration Time 178.7 ms TR Peak Velocity 274.6 cm/s TR Peak Gradient 30.2 mmHg Right Atrial Pressure 10.0 mmHg Pulmonary Artery Systolic Pressu 40.2 mmHg Right Ventricular Systolic Press 40.2 mmHg PV Peak Velocity 85.4 cm/s PV Peak Gradient 2.9 mmHg FINDINGS Left Ventricle Left ventricular ejection fraction is estimated at 50 %. Severely increased left ventricular diastolic volume. Left ventricular wall thickness normal. No obvious regional wall motion abnormalities. Right Ventricle Normal right ventricular size and function. Mild pulmonary hypertension. Right Atrium Normal right atrial size. Left Atrium Moderately increased left atrial volume. Mildly increased left atrial area. Mitral Valve Structurally normal mitral valve. No evidence for mitral valve prolapse. No mitral stenosis. Trace mitral regurgitation. Aortic Valve Trileaflet aortic valve. Diffuse thickening of the aortic valve cusps with reduced excursion. Severe aortic stenosis. Mean gradient 46 mmHg with a valve Tricuspid Valve Structurally normal tricuspid valve. No tricuspid stenosis. Mild tricuspid regurgitation. Pulmonic Valve Structurally normal pulmonic valve. No pulmonic stenosis. Trace pulmonic regurgitation. Pericardium No pericardial effusion. Aorta Normal size aortic root and proximal ascending aorta. CONCLUSIONS Low normal LV systolic function with EF at 50% Aortic sclerosis with severe aortic stenosis by area as well as by gradient Previewed by: Dr. Alin Benites MD (Electronically Signed) Final Date: 30 November 2024 09:50
[2024-11-30] MEDS ORDERED: ALPRAZolam 0.25 MG TAB PO PRN (09:52)
[2024-11-30] MEDS ORDERED: NITROGLYCERIN SL TABS 0.4 MG TAB SUBLINGUAL PRN (09:52)
[2024-11-30] MEDS ORDERED: ALPRAZolam 0.5 MG TAB PO PRN (09:52)
[2024-11-30] MEDS: ASPIRIN 325 MG TAB PO STA (10:09)
[2024-11-30] MEDS: ATORVASTATIN 80 MG TAB PO STA (10:09)
[2024-11-30] MEDS: SODIUM CHLORIDE 0.9% 1,000 ML in EMPTY BAG 1 BAG IV SCH (10:10)
[2024-11-30 10:26] LABS: Glucose,Whole Blood 131 mg/dL (70-110)
--- NOTE | 2024-11-30 11:52 | P.PN ---
Subjective HISTORY OF PRESENT ILLNESS: This is a 69-year-old female with a past medical history significant for asthma, diabetes, obesity, seizure, and reported CVA and ID. Patient does not follow with a cop examiner. We have been asked to see the patient in consultation for chest pain. Patient examined at the bedside in the emergency room. Patient stat es yesterday after using the bathroom she had had chest discomfort. She states the pain is in the middle of her chest and then radiated across the middle of her back and into her neck. She does report feeling diaphoretic. She denies any dizziness or lightheadedness. Patient states that she was hospitalized at [facility] in January 2023. She states that she had a heart attack, CVA, and a seizure during that admission. She states that she did not undergo cardiac catheterization. She does report that she was told that she had a tight valve but did not require surgical intervention at that time. The patient states that she is unable to ambulate due to foot drop. She is a non-smoker. DIAGNOSTICS: - EKG reveals sinus mechanism with no signs of acute ischemia. - Chest xray negative for acute process. - Laboratory data: WBC 7.6. Hemoglobin 11.3. Platelet count 101. Sodium 135. Potassium 5.3. BUN 41. Creatinine 1.53. Magnesium 2.3. Troponin negative x 3. proBNP 2210 - Current home cardiac medications include none. - No previous echocardiogram, stress test, or cardiac catheterization available in EMR for review 11/30/2024 Patient examined this morning the bedside. Patient currently denies shortness of breath. Denies cough. She continues to report chest discomfort this morning. EKG completed this morning with no ischemic changes. Echocardiogram completed revealing ejection fraction 50%, no obvious regional wall motion abnormalities, mild pulmonary hypertension, severe aortic stenosis with mean gradient 46 mmHg PHYSICAL EXAM: VITAL SIGNS: Reviewed. GENERAL: Well-developed in no acute distress. HEENT: Head is normocephalic. Pupils are equal, round. Sclerae anicteric. Mucous membranes of the mouth are moist. Neck supple. No JVD or thyromegaly LUNGS: Respirations even and unlabored. Lungs essentially clear to auscultation bilaterally. HEART: Regular rate and rhythm. S1 and S2 heard. Systolic murmur with diminished S2. ABDOMEN: Soft. Nondistended. Nontender. EXTREMITIES: Normal range of motion. No clubbing or cyanosis. Peripheral pulses intact. No lower extremity edema NEUROLOGIC: Awake and alert. Oriented x 3. ASSESSMENT: Chest pain Severe aortic stenosis Acute kidney injury, likely CKD History of asthma History of diabetes Morbid obesity: BMI 44.9 History of ID per patient without previous cardiac catheterization History of CVA, 2022 History of seizure, 2022 PLAN: An acute coronary event has been ruled out Continue to hold losartan and Farxiga. Repeat kidney function in a.m. Patient found to have severe aortic stenosis. Additionally, due to continued chest pain, patient will undergo cardiac catheterization today with Dr. Benites Further recommendations pending patient course Nurse practitioner note has been reviewed by physician. Signing provider agrees with the documented findings, assessment, and plan of care documented by SAS PROGRAMMER ANALYST as a scribe. Objective - Vital Signs Vital signs: Vital Signs Temp 98.5 F 11/30/24 07:00 Pulse 62 11/30/24 07:00 Resp 15 11/30/24 07:00 BP 106/52 11/30/24 07:00 Pulse Ox 98 11/30/24 07:00 FiO2 Intake & Output 11/29/24 11/30/24 11/30/24 18:59 06:59 18:59 Output Total 700 Balance -700 Weight 104.326 kg Output: Urine 700 Other: Voiding Method Diaper Diaper External Catheter External Catheter # Voids 0 - Labs CBC & Chem 7: 11/29/24 06:48 11/30/24 03:27 Labs: Abnormal Lab Results - Last 24 Hours (Table) 11/30/24 11/30/24 Range/Units 03:27 10:24 BUN 42 H (7-17) mg/dL Creatinine 1.65 H (0.52-1.04) mg/dL Glucose 106 H (74-99) mg/dL POC Glucose (mg/dL) 131 H (70-110) mg/dL TSH 0.333 L (0.465-4.680) mIU/L
[2024-11-30 12:00] LABS: Glucose,Whole Blood 107 mg/dL (70-110)
[2024-11-30] MEDS: SODIUM CHLORIDE 0.9% 1,000 ML IV ONE (12:28)
[2024-11-30] MEDS: HEPARIN SODIUM,PORCINE (1 ML) 2,500 UNIT in SODIUM CHLORIDE 0.9% 250 ML IRRIGATION PRN (12:29)
[2024-11-30] MEDS: HEPARIN SODIUM,PORCINE 10,000 UNIT in SODIUM CHLORIDE 0.9% 1,000 ML IRRIGATION PRN (12:29)
[2024-11-30] MEDS: MIDAZOLAM 2 MG/2 ML VIAL IVP ONE (12:31)
[2024-11-30] MEDS: LIDOCAINE 1% INJ 10MG/ML (20 ML MDV) SQ ONE (12:37)
[2024-11-30] MEDS: IOPAMIDOL-370 100ML BTL INJ ONE (13:03)
[2024-11-30] MEDS ORDERED: RX INFO: IV CONTRAST WAS GIVEN 1 EACH MISC MISCELLANE PRN (13:03)
--- NOTE | 2024-11-30 13:08 | P.PCN ---
Date of Procedure: 11/30/24 Operative Findings: CARDIAC CATHETERIZATION PERFORMING PHYSICIAN: Alin Benites MD, RPVI PROCEDURE PERFORMED: 1. Selective right and left coronary angiogram 2. Left heart catheterization and right heart catheterization 3. Ultrasound-guided access of the right common femoral artery and right common femoral vein and selective right common femoral artery angiogram INDICATION: Chest discomfort concerning for angina and severe aortic stenosis COMPLICATION: None APPROACH: Right common femoral artery LEVEL OF SEDATION: Moderate with sedation in length of 25 minutes PROCEDURE DESCRIPTION: After obtaining an informed consent, the patient was brought to cardiac recyclable materials sorter. Local anesthesia was performed using lidocaine subcutaneously. The right common femoral artery was cannulated using Seldinger technique, the guidewire passed easily, following that we advanced a 6 Macanese sheath dilator assembly, the wire and dilator were removed and sheath was flushed. Selective right and left coronary angiogram using a 6-Macanese JR4 and JL catheters. Left heart catheterization was performed using an AL-1 with a straight wire. Right heart catheterization was performed using 6 Macanese [place] catheter The procedure was completed there was no complication. SELECTIVE CORONARY ANGIOGRAM: The right coronary artery: Large-caliber vessel and dominant vessel appears to be angiographically normal Left main: Is angiographically normal The left circumflex: Large-caliber vessel nondominant vessel and appears to be angiographically normal The left anterior descending artery: Large caliber vessel with no evidence of high-grade stenosis and gives rise into diagonal branch seems to be normal HEMODYNAMICS: Pulmonary capillary wedge pressure was 15 mmHg PA pressures were as follows systolic of 51 and diastolic of 16 and mean of 30 mmHg RV pressures were as follows systolic of 53 and end-diastolic of 15 mmHg RA pressure was 12 mmHg LV pressures were as follows systolic of 189 and end-diastolic of 26 mmHg The cardiac output was 6.39 L/min with a cardiac index of 3.23 L/min/m The aortic valve mean gradient was 40 mmHg and area of 1.07 cm with an indexed area of 0.5 m centimeter squared per meter squared CONCLUSION: 1. Normal coronary angiogram 2. Severe aortic stenosis by gradient as well as by area 3. Elevated biventricular filling pressure POSTPROCEDURE MANAGEMENT: The patient need to be evaluated for aortic valve replacement surgically or percutaneously
--- NOTE | 2024-11-30 13:28 | P.PN ---
Subjective Progress Note Date: 11/30/24 Hospital Course: 69-year-old woman with medical history of asthma, diabetes presented for evalu ation of chest pain. Patient says that she started experiencing pain yesterday morning. Upon waking up and getting out of bed, she immediately felt dizzy and then started to experience some onset of substernal chest pain rating across her chest. She says that the pain is worse in the sitting up position, particularly noted when she was eating breakfast. She said the pain was associated with the position she was sitting in and not with the food that she was consuming. She also reports dizziness, lightheadedness. She denies shortness of breath, palpitations, diaphoresis, syncope, presyncope. In the emergency room, patient was afebrile, 102/56, heart rate 84, 96% on 2 L nasal cannula. CBC was remarkable for thrombocytopenia to 113. Basic metabolic panel showed sodium of 135, potassium 5.3, BUN of 41, creatinine of 1.53. Troponin was less than 0.012 and trended to less than 0.012 twice. BNP was 2210. Chest x-ray shows poor inspiratory effort, increased pulmonary vascularity, borderline cardiomegaly. EKG showed sinus arrhythmia, appropriate axis, no STT wave changes that are concerning for ischemia. Cardiology consulted, TTE showed EF of 50%, no regional wall motion abnormal ities, mild pulmonary hypertension, severe aortic stenosis with mean gradient 46 mmHg, she underwent cardiac catheterization on 11/30/2024, it revealed normal coronary angiogram with aortic stenosis, elevated biventricular filling pressure, patient will stay overnight for further monitoring, in case of chest pain recurrence she will need valvuloplasty during this hospitalization. Of mild, patient's kidney function is back to baseline. Baseline creatinine appears to be at around 1.6, patient has CKD stage IIIb. Her losartan and Farxiga are on hold Pertinent Imaging: Results of PCI as reported above Subjective: Patient was seen and examined at bedside, she was in the feeling anxiety prior to cardiac cath, otherwise denied chest pain and shortness of breath, denied abdominal pain Pertinent positives and negatives as discussed above, a complete review of systems was performed and all other systems are negative. Vitals Signs Reviewed. General: [nontoxic], [no distress], [appears at stated age], obese Derm: [warm], [dry], bilateral lower extremity chronic venous stasis changes, old healed medellin wounds Head: [atraumatic], [normocephalic], [symmetric] Eyes: [EOMI], [no lid lag], [anicteric sclera] Mouth: [no lip lesion], [mucus membranes moist] Cardiovascular: [Aortic stenosis murmur Lungs: [CTA bilateral], [no rhonchi, no rales] , [no accessory muscle use] Abdominal: [soft], [ nontender to palpation], [no guarding], [no appreciable organomegaly] Ext: [no gross muscle atrophy], [no edema], [no contractures] Neuro: [ CN II-XI grossly intact], [no focal neuro deficits] Psych: [Alert], [oriented], [appropriate affect] Data Reviewed Today: Pertinent Labs: Reviewed CBC from 11/29 showed stable hemoglobin above 11, platelet count 101, creatinine trending down to 1.65, glucose is well- controlled, LDL at goal, TSH 0.23, free T4 normal Assessment and Plan: [Active:] Chest pain Severe aortic stenosis History of CVA -Heart catheter from 11/20/2024, no CAD, severe aortic stenosis -Monitor overnight per cardiology -Continue aspirin, continue atorvastatin 80, LEROY on CKD 3B -Continue to hold losartan and Farxiga, monitor BMP -Patient will benefit from outpatient nephrology referral Thrombocytopenia, normocytic anemia -Monitor CBC, check iron panel -Continue iron 325 daily Subclinical hypothyroidism -Follow-up with primary care physician, repeat thyroid function in 4 to 6 weeks [Chronic:] Chronic intermittent asthma: Continue inhalers Type II DM: A1c 5.9, blood glucose is under control Obesity: Recommend weight loss, outpatient sleep studies Neuropathy: Continue gabapentin Anxiety: Continue Xanax as needed DVT ppx: Heparin Anticipated discharge place:12/01/24 Anticipated discharge time: home Objective - Vital Signs Vital signs: Vital Signs Temp 98.5 F 11/30/24 07:00 Pulse 62 11/30/24 07:00 Resp 15 11/30/24 07:00 BP 106/52 11/30/24 07:00 Pulse Ox 97 11/30/24 11:57 FiO2 Intake & Output 11/29/24 11/30/24 11/30/24 18:59 06:59 18:59 Intake Total 80 Output Total 700 Balance -700 80 Weight 104.326 kg Intake: IV 80 Output: Urine 700 Other: Voiding Method Diaper Diaper External Catheter External Catheter # Voids 0 - Labs CBC & Chem 7: 11/29/24 06:48 11/30/24 03:27 Labs: Abnormal Lab Results - Last 24 Hours (Table) 11/30/24 11/30/24 Range/Units 03:27 10:24 BUN 42 H (7-17) mg/dL Creatinine 1.65 H (0.52-1.04) mg/dL Glucose 106 H (74-99) mg/dL POC Glucose (mg/dL) 131 H (70-110) mg/dL TSH 0.333 L (0.465-4.680) mIU/L
[2024-11-30] MEDS: SODIUM CHLORIDE 0.9% 1,000 ML IV SCH (14:49)
[2024-11-30 19:43] VITALS: RESP 16
[2024-12-01 01:54] VITALS: TEMP 97.9
[2024-12-01 09:08] LABS: Basophils # (A) 0.02 X 10*3/uL (0.00-0.10); Basophils % (A) 0.3 %; Eosinophils # (A) 0.26 X 10*3/uL (0.04-0.35); Eosinophils % (A) 4.3 %; HCT 35.8 % (37.2-46.3); HGB 10.8 g/dL (12.0-15.0); Lymphocytes # (A) 1.21 X 10*3/uL (0.90-5.00); Lymphocytes % (A) 20.2 %; MCH 29.8 pg (27.0-32.0); MCHC 30.2 g/dL (32.0-37.0); MCV 98.9 FL (80.0-97.0); Mean Platelet Volume 11.4 FL (9.5-12.2); Monocytes % (A) 6.7 %; NRBC Per 100 WBC 0 X 10*3/uL (0.00-0.01); Neutrophils # (A) 4.09 X 10*3/uL (1.80-7.70); Neutrophils % (A) 68.2 %; Platelet Count 109 X 10*3/uL (140-440); RBC 3.62 X 10*6/uL (4.10-5.20); RDW 13.1 % (11.5-14.5)
[2024-12-01 09:34] LABS: % Iron Saturation 11.24 (12.00-45.00); Blood Urea Nitrogen 36.8 mg/dL (9.0-27.0); Calcium 8.9 mg/dL (8.7-10.3); Chloride 109 mmol/L (96-109); Glucose 102 mg/dL (70-110); Iron 20 UG/DL (50-170); Sodium 141 mmol/L (135-145); Total Iron Binding Capacity 178 UG/DL (228-460)
[2024-12-01 10:09] VITALS: BP 148/62
[2024-12-01 11:08] VITALS: PULSE 72
--- NOTE | 2024-12-01 12:06 | P.PN ---
Subjective Progress Note Date: 12/01/24 This is a 69-year-old female with a past medical history significant for asthma, diabetes, obesity, seizure, and reported CVA and NV. Patient does not follow with a homeowner association manager. We have been asked to see the patient in consultation for chest pain. Patient examined at the bedside in the emergency room. Patient states yesterday after using the bathroom she had had chest discomfort. She states the pain is in the middle of her chest and then radiated across the middle of her back and into her neck. She does report feeling diaphoretic. She denies any dizziness or lightheadedness. Patient states that she was hospitalized at [facility] in January 2023. She states that she had a heart attack, CVA, and a seizure during that admission. She states that she did not undergo cardiac catheterization. She does report that she was told that she had a tight valve but did not require surgical intervention at that time. The patient states that she is unable to ambulate due to foot drop. She is a non- smoker. DIAGNOSTICS: - EKG reveals sinus mechanism with no signs of acute ischemia. - Chest xray negative for acute process. - Laboratory data: WBC 7.6. Hemoglobin 11.3. Platelet count 101. Sodium 135. Potassium 5.3. BUN 41. Creatinine 1.53. Magnesium 2.3. Troponin negative x 3. proBNP 2210 - Current home cardiac medications include none. - No previous echocardiogram, stress test, or cardiac catheterization available in EMR for review 11/30/2024 Patient examined this morning the bedside. Patient currently denies shortness of breath. Denies cough. She continues to report chest discomfort this morning. EKG completed this morning with no ischemic changes. Echocardiogram completed revealing ejection fraction 50%, no obvious regional wall motion abnormalities, mild pulmonary hypertension, severe aortic stenosis with mean gradient 46 mmHg 12/01/2024 Patient is seen and examined at bedside this a.m. No new cardiovascular symptoms. BP 148/62, heart rate is 72 bpm. Hemoglobin is 10.8, creatinine is 1.6. BUN is 36. PHYSICAL EXAM: VITAL SIGNS: Reviewed. GENERAL: Well-developed in no acute distress. HEENT: Head is normocephalic. Pupils are equal, round. Sclerae anicteric. Mucous membranes of the mouth are moist. Neck supple. No JVD or thyromegaly LUNGS: Respirations even and unlabored. Lungs essentially clear to auscultation bilaterally. HEART: Regular rate and rhythm. S1 and S2 heard. Systolic murmur with diminished S2. ABDOMEN: Soft. Nondistended. Nontender. EXTREMITIES: Normal range of motion. No clubbing or cyanosis. Peripheral pulses intact. No lower extremity edema NEUROLOGIC: Awake and alert. Oriented x 3. ASSESSMENT: Severe aortic stenosis CKD History of asthma History of diabetes Morbid obesity: BMI 44.9 History of NV per patient without previous cardiac catheterization History of CVA, 2022 History of seizure, 2022 PLAN: Continue aspirin, Lipitor. Discontinue losartan due to LEROY/CKD and potassium on higher side of normal. Avoid using beta-susan Add amlodipine 5 mg daily. Patient is cleared from cardiovascular standpoint recommend outpatient follow-up with Dr. Garza CV surgery and Dr. Clark. Recommend monitoring blood pressure at home. If patient feels lightheaded and dizzy, or have syncopal episode, I have instructed her to go to the ER. Objective - Vital Signs Vital signs: Vital Signs Temp 97.9 F 12/01/24 07:00 Pulse 72 12/01/24 08:00 Resp 16 12/01/24 08:00 BP 148/62 12/01/24 07:00 Pulse Ox 98 12/01/24 07:00 FiO2 Intake & Output 11/30/24 12/01/24 12/01/24 18:59 06:59 18:59 Intake Total 80 222 118 Output Total 1600 400 Balance 80 -1378 -282 Intake: IV 80 Oral 222 118 Output: Urine 1600 400 Other: Voiding Method External Catheter External Catheter External Catheter # Voids 300 300 - Labs CBC & Chem 7: 12/01/24 04:52 12/01/24 04:52 Labs: Abnormal Lab Results - Last 24 Hours (Table) 12/01/24 12/01/24 Range/Units 04:52 04:52 RBC 3.62 L (4.10-5.20) X 10*6/uL Hgb 10.8 L (12.0-15.0) g/dL Hct 35.8 L (37.2-46.3) % MCV 98.9 H (80.0-97.0) FL MCHC 30.2 L (32.0-37.0) g/dL Plt Count 109 L (140-440) X 10*3/uL BUN 36.8 H (9.0-27.0) mg/dL Creatinine 1.6 H (0.6-1.5) mg/dL Est GFR (CKD-EPI) 35 L (>=60) BUN/Creatinine Ratio 23.00 H (12.00-20.00) Ratio Iron 20 L (50-170) UG/DL TIBC 178 L (228-460) UG/DL % Saturation 11.24 L (12.00-45.00) Transferrin 127.0 L (204.0-354.0) mg/dL
--- NOTE | 2024-12-01 12:45 | P.DS ---
Providers Date of admission: 11/28/24 17:10 Attending physician: Los Pritchard Consults: 11/28/24 17:09 Consult Physician Routine Consulting Provider: Urban Romano Consult Reason/Comments: cp Do you want consulting provider notified?: Yes Primary care physician: Pratik Arias MD Hospital Course: Discharge Diagnosis: Chest pain Severe aortic stenosis History of CVA LEROY on CKD 3B Thrombocytopenia, normocytic anemia, anemia of iron deficiency Subclinical hypothyroidism MOrbid obesity Hospital Course: 69-year-old woman with medical history of asthma, diabetes presented for evaluation of chest pain. Patient says that she started experiencing pain yesterday morning. Upon waking up and getting out of bed, she immediately felt dizzy and then started to experience some onset of substernal chest pain rating across her chest. She says that the pain is worse in the sitting up position, particularly noted when she was eating breakfast. She said the pain was associated with the position she was sitting in and not with the food that she was consuming. She also reports dizziness, lightheadedness. She denies shortness of breath, palpitations, diaphoresis, syncope, presyncope. In the emergency room, patient was afebrile, 102/56, heart rate 84, 96% on 2 L nasal cannula. CBC was remarkable for thrombocytopenia to 113. Basic metabolic panel showed sodium of 135, potassium 5.3, BUN of 41, creatinine of 1.53. Troponin was less than 0.012 and trended to less than 0.012 twice. BNP was 2210. Chest x-ray shows poor inspiratory effort, increased pulmonary vascularity, borderline cardiomegaly. EKG showed sinus arrhythmia, appropriate axis, no STT wave changes that are concerning for ischemia. Cardiology consulted, TTE showed EF of 50%, no regional wall motion abnormaliti es, mild pulmonary hypertension, severe aortic stenosis with mean gradient 46 mmHg, she underwent cardiac catheterization on 11/30/2024, it revealed normal coronary angiogram with aortic stenosis, elevated biventricular filling pressure, Discontinue losartan due to LEROY/CKD and potassium on higher side of normal. Avoid using beta-susan Add amlodipine 5 mg daily. Patient is cleared from cardiovascular standpoint recommend outpatient follow-up with Dr. Garza CV surgery and Dr. Clark. Recommend monitoring blood pressure at home. If patient feels lightheaded and dizzy, or have syncopal episode, instructed to go to the ER. Patient seen and examined at bedside Vital signs reviewed and stable. General: [nontoxic], [no distress], [appears at stated age], obese Derm: [warm], [dry], bilateral lower extremity chronic venous stasis changes, old healed medellin wounds Head: [atraumatic], [normocephalic], [symmetric] Eyes: [EOMI], [no lid lag], [anicteric sclera] Mouth: [no lip lesion], [mucus membranes moist] Cardiovascular: [Aortic stenosis murmur Lungs: [CTA bilateral], [no rhonchi, no rales] , [no accessory muscle use] Abdominal: [soft], [ nontender to palpation], [no guarding], [no appreciable organomegaly] Ext: [no gross muscle atrophy], [no edema], [no contractures] Neuro: [ CN II-XI grossly intact], [no focal neuro deficits] Psych: [Alert], [oriented], [appropriate affect] A total of 40inutes of time were spent preparing this complex discharge summary. Patient Condition at Discharge: Stable Plan - Discharge Summary Discharge Rx Participant: Yes New Discharge Prescriptions: New amLODIPine [Norvasc] 5 mg PO DAILY #60 tab Continue Artificial Tears-Hypromellose [Artificial Tear Drops] 1 drop BOTH EYES Q4H PRN PRN Reason: Dry Eye(S) Albuterol Inhaler [Ventolin Hfa Inhaler] 1 puff INHALATION RT-Q4H PRN PRN Reason: Shortness Of Breath Or Wheezing Nystatin 100,000 Unit/gm Powd [Mycostatin Powder] 1 applic TOPICAL BID Atorvastatin [Lipitor] 80 mg PO HS Tirzepatide [Mounjaro] 2.5 mg SQ SA Multivit-Min/FA/Lycopen/Lutein [Centrum Silver Tablet] 1 tab PO DAILY Biotin 10 mg PO DAILY Levocetirizine Dihydrochloride [Xyzal] 5 mg PO DAILY Famotidine [Pepcid] 20 mg PO DAILY Escitalopram [Lexapro] 20 mg PO DAILY Empagliflozin [Jardiance] 10 mg PO DAILY Nitroglycerin Sl Tabs [Nitrostat] 0.4 mg SL Q5M PRN PRN Reason: Chest Pain Buprenorphine [Butrans 20 MCG/HOUR] 1 patch TRANSDERM TU traZODone HCL 100 mg PO HS Ammonium Lactate Lotion [Lac-Hydrin 12% Lotion] 1 applic TOPICAL BID Melatonin 5 mg PO HS Gabapentin 800 mg PO TID Ferrous Sulfate [Iron (65 MG Elemental)] 325 mg PO DAILY Aspirin EC [Ecotrin Low Dose] 81 mg PO DAILY ARIPiprazole [Abilify] 2 mg PO DAILY Cholecalciferol (Vitamin D3) [Vitamin D3 (125 MCG = 5,000 IU)] 125 mcg PO DAILY Discontinued Amoxic-Pot Clav 875-125Mg [Augmentin 875-125] 1 tab PO BID Losartan [Cozaar] 25 mg PO DAILY Discharge Medication List ARIPiprazole [Abilify] 2 mg PO DAILY 11/29/24 [History] Albuterol Inhaler [Ventolin Hfa Inhaler] 1 puff INHALATION RT-Q4H PRN 11/29/24 [History] Ammonium Lactate Lotion [Lac-Hydrin 12% Lotion] 1 applic TOPICAL BID 11/29/24 [History] Artificial Tears-Hypromellose [Artificial Tear Drops] 1 drop BOTH EYES Q4H PRN 11/29/24 [History] Aspirin EC [Ecotrin Low Dose] 81 mg PO DAILY 11/29/24 [History] Atorvastatin [Lipitor] 80 mg PO HS 11/29/24 [History] Biotin 10 mg PO DAILY 11/29/24 [History] Buprenorphine [Butrans 20 MCG/HOUR] 1 patch TRANSDERM TU 11/29/24 [History] Cholecalciferol (Vitamin D3) [Vitamin D3 (125 MCG = 5,000 IU)] 125 mcg PO DAILY 11/29/24 [History] Empagliflozin [Jardiance] 10 mg PO DAILY 11/29/24 [History] Escitalopram [Lexapro] 20 mg PO DAILY 11/29/24 [History] Famotidine [Pepcid] 20 mg PO DAILY 11/29/24 [History] Ferrous Sulfate [Iron (65 MG Elemental)] 325 mg PO DAILY 11/29/24 [History] Gabapentin 800 mg PO TID 11/29/24 [History] Levocetirizine Dihydrochloride [Xyzal] 5 mg PO DAILY 11/29/24 [History] Melatonin 5 mg PO HS 11/29/24 [History] Multivit-Min/FA/Lycopen/Lutein [Centrum Silver Tablet] 1 tab PO DAILY 11/29/24 [History] Nitroglycerin Sl Tabs [Nitrostat] 0.4 mg SL Q5M PRN 11/29/24 [History] Nystatin 100,000 Unit/gm Powd [Mycostatin Powder] 1 applic TOPICAL BID 11/29/24 [History] Tirzepatide [Mounjaro] 2.5 mg SQ SA 11/29/24 [History] traZODone HCL 100 mg PO HS 11/29/24 [History] amLODIPine [Norvasc] 5 mg PO DAILY #60 tab 12/01/24 [Rx] Follow up Appointment(s)/Referral(s): Pratik Arias MD [Primary Care Provider] - 1-2 days Alin Benites MD [STAFF PHYSICIAN] - 1 Week Roge Garza MD [STAFF PHYSICIAN] - 1 Week Patient Instructions/Handouts: Aortic Stenosis (DC) Activity/Diet/Wound Care/Special Instructions: Please, follow up with your PCP and cardiology.Please, monitor your blood pressure closely.suggest undergoing sleep study to rule out sleep apnea, recommend weight loss. Pleas, go to the ER if you feel lightheaded and dizzy.
[2024-12-01] MEDS: amLODIPine 5 MG TAB PO SCH (12:59)
== END 2024-12-01 13:02 | disposition home or self-care (01) | DRG 287 ==
LOC: EC 13:23 → 6NMEDSUR 17:10 → OBSVTOIN 17:10 → 6NMEDSUR 11-29 00:11 → UNDODISOB 12-01 13:02
PROVIDERS: ADMIT Student in an Organized Health Care Education/Training Program; ATTEND Hospitalist
PROC: B2111ZZ Fluoroscopy of Multiple Coronary Arteries using Low Osmolar Contrast (ICD-10-PCS; 2024-11-30)
PROC: 4A023N8 Measurement of Cardiac Sampling and Pressure, Bilateral, Percutaneous Approach (ICD-10-PCS; principal; 2024-11-30 12:40)
DX: I35.0 Nonrheumatic aortic (valve) stenosis (principal); N17.9 Acute kidney failure, unspecified; Z68.41 Body mass index [BMI] 40.0-44.9, adult; E66.01 Morbid (severe) obesity due to excess calories; N18.32 Chronic kidney disease, stage 3b; E11.22 Type 2 diabetes mellitus with diabetic chronic kidney disease; I27.20 Pulmonary hypertension, unspecified; D69.6 Thrombocytopenia, unspecified; E11.40 Type 2 diabetes mellitus with diabetic neuropathy, unspecified; J45.20 Mild intermittent asthma, uncomplicated; E03.8 Other specified hypothyroidism; D50.9 Iron deficiency anemia, unspecified; I51.7 Cardiomegaly; M21.379 Foot drop, unspecified foot; F41.9 Anxiety disorder, unspecified; I87.8 Other specified disorders of veins; I25.2 Old myocardial infarction; Z86.73 Personal history of transient ischemic attack (TIA), and cerebral infarction without residual deficits; Z79.84 Long term (current) use of oral hypoglycemic drugs; Z79.82 Long term (current) use of aspirin; Z79.899 Other long term (current) drug therapy; Z79.85 Long-term (current) use of injectable non-insulin antidiabetic drugs; Z86.69 Personal history of other diseases of the nervous system and sense organs
CPT/HCPCS: 36415; 71046; 80048; 80053; 80061; 83036; 83540; 83550; 83735; 83880; 84100; 84439; 84443; 84484; 85025; 85610; 85730; 93005; 93306; 93453; 94760; 96361; 96374; 96376; 99285; 99291

== ENCOUNTER 2024-12-13 05:24 | Observation (INO) | payer OTHER ==
--- NOTE | 2024-12-13 05:34 | ED ---
Chest Pain HPI - General Chief Complaint: Chest Pain Stated Complaint: Chest Pain Time Seen by Provider: 12/13/24 05:31 Source: EMS, RN notes reviewed, old records reviewed Mode of arrival: EMS Limitations: no limitations - History of Present Illness Initial Comments: This is a 69-year-old female to the ER for evaluation of chest pain today. Patient presents as a patient with severe chest pain that awoke her from sleep, patient does admit to recent hospital admission for chest pain with history of CAD where she was given a cardiac catheterization and told it was normal. Patient states this pain is the first pain she has had since then and the pain is worse MD Complaint: chest pain -: hour(s) Onset: during rest, during exertion Pain Location: substernal, left chest Pain Radiation: none Severity: moderate Severity scale (1-10): 7 Quality: tightness, aching, heaviness Consistency: constant Improves With: nothing Worsens With: nothing Anginal Symptoms: sense of impending doom Other Symptoms: palpitations Treatments Prior to Arrival: none - Related Data Home Medications Medication Instructions Recorded Confirmed ARIPiprazole [Abilify] 2 mg PO DAILY 11/29/24 11/29/24 Albuterol Inhaler [Ventolin Hfa 1 puff INHALATION RT-Q4H PRN 11/29/24 11/29/24 Inhaler] Ammonium Lactate Lotion 1 applic TOPICAL BID 11/29/24 11/29/24 [Lac-Hydrin 12% Lotion] Artificial Tears-Hypromellose 1 drop BOTH EYES Q4H PRN 11/29/24 11/29/24 [Artificial Tear Drops] Aspirin EC [Ecotrin Low Dose] 81 mg PO DAILY 11/29/24 11/29/24 Atorvastatin [Lipitor] 80 mg PO HS 11/29/24 11/29/24 Biotin 10 mg PO DAILY 11/29/24 11/29/24 Buprenorphine [Butrans 20 MCG/HOUR] 1 patch TRANSDERM TU 11/29/24 11/29/24 Cholecalciferol (Vitamin D3) 125 mcg PO DAILY 11/29/24 11/29/24 [Vitamin D3 (125 MCG = 5,000 IU)] Empagliflozin [Jardiance] 10 mg PO DAILY 11/29/24 11/29/24 Escitalopram [Lexapro] 20 mg PO DAILY 11/29/24 11/29/24 Famotidine [Pepcid] 20 mg PO DAILY 11/29/24 11/29/24 Ferrous Sulfate [Iron (65 MG 325 mg PO DAILY 11/29/24 11/29/24 Elemental)] Gabapentin 800 mg PO TID 11/29/24 11/29/24 Levocetirizine Dihydrochloride 5 mg PO DAILY 11/29/24 11/29/24 [Xyzal] Melatonin 5 mg PO HS 11/29/24 11/29/24 Multivit-Min/FA/Lycopen/Lutein 1 tab PO DAILY 11/29/24 11/29/24 [Centrum Silver Tablet] Nitroglycerin Sl Tabs [Nitrostat] 0.4 mg SL Q5M PRN 11/29/24 11/29/24 Nystatin 100,000 Unit/gm Powd 1 applic TOPICAL BID 11/29/24 11/29/24 [Mycostatin Powder] Tirzepatide [Mounjaro] 2.5 mg SQ SA 11/29/24 11/29/24 traZODone HCL 100 mg PO HS 11/29/24 11/29/24 Previous Rx's Medication Instructions Recorded amLODIPine [Norvasc] 5 mg PO DAILY #60 tab 12/01/24 Allergies Allergy/AdvReac Type Severity Reaction Status Date / Time duloxetine [From Cymbalta] Allergy Rash/Hives Verified 12/13/24 05:30 sitagliptin [From Januvia] Allergy Rash/Hives Verified 12/13/24 05:30 Review of Systems ROS Statement: Those systems with pertinent positive or pertinent negative responses have been documented in the HPI. ROS Other: All systems not noted in ROS Statement are negative. EKG Findings - EKG Comments: EKG Findings:: EKG is sinus 81 NH 155 QRS 92 QTc 414 - EKG Results: EKG: interpreted by ERMD Past Medical History Past Medical History: Asthma, CVA/TIA, Diabetes Mellitus, Myocardial Infarction (PR), Seizure Disorder Additional Past Medical History / Comment(s): foot drop Last Myocardial Infarction Date:: 2022 History of Any Multi-Drug Resistant Organisms: None Reported Past Surgical History: Adenoidectomy, Appendectomy, Back Surgery, Cholecys tectomy, Heart Catheterization, Orthopedic Surgery, Tonsillectomy Additional Past Surgical History / Comment(s): rt leg, rt arm sx, back sx Past Anesthesia/Blood Transfusion Reactions: No Reported Reaction Past Psychological History: No Psychological Hx Reported Smoking Status: Never smoker Past Alcohol Use History: None Reported Past Drug Use History: None Reported General Exam Limitations: no limitations General appearance: alert, in no apparent distress, anxious Head exam: Present: atraumatic, normocephalic, normal inspection Eye exam: Present: normal appearance, PERRL, EOMI. Absent: scleral icterus, conjunctival injection, periorbital swelling ENT exam: Present: normal exam, mucous membranes moist Neck exam: Present: normal inspection. Absent: tenderness, meningismus, lymphadenopathy Respiratory exam: Present: normal lung sounds bilaterally. Absent: respiratory distress, wheezes, rales, rhonchi, stridor Cardiovascular Exam: Present: regular rate, normal rhythm, normal heart sounds. Absent: systolic murmur, diastolic murmur, rubs, gallop, clicks GI/Abdominal exam: Present: soft, normal bowel sounds. Absent: distended, tenderness, guarding, rebound, rigid Extremities exam: Present: normal inspection, full ROM, normal capillary refill. Absent: tenderness, pedal edema, joint swelling, calf tenderness Back exam: Present: normal inspection Neurological exam: Present: alert, oriented X3, CN II-XII intact Psychiatric exam: Present: normal affect, normal mood Skin exam: Present: warm, dry, intact, normal color. Absent: rash Course Vital Signs 12/13/24 12/13/24 05:25 05:30 Temperature 98.1 F Pulse Rate 87 Respiratory 16 Rate Blood Pressure 137/60 O2 Sat by Pulse 88 L 98 Oximetry - Reevaluation(s) Reevaluation #1: 12/13/24 06:07 Medical records reviewed Reevaluation #2: 12/13/24 06:07 Patient still with chest pain Reevaluation #3: 12/13/24 06:08 Patient informed of results questions answered Reevaluation #4: Was pt. sent in by a medical professional or institution (, PA, [facility], urgent care, hospital, or [facility]...) When possible be specific @ -no Did you speak to anyone other than the patient for history (EMS, parent, family, police, friend...)? What history was obtained from this source @ -no Did you review nursing and triage notes (agree or disagree)? Why? @ -agree Are old charts reviewed (outside hosp., previous admission, EMS record, old EKG, old radiological studies, urgent care reports/EKG's, [facility] records)? Report findings @ -yes Differential Diagnosis (chest pain, altered mental status, abdominal pain women, abdominal pain men, vaginal bleeding, weakness, fever, dyspnea, syncope, headache, dizziness, GI bleed, back pain, seizure, CVA, palpatations, mental health, musculoskeletal)? @ -prior EKG interpreted by me (3pts min.). @ -yes X-rays interpreted by me (1pt min.). @ -yes negative for acute disease CT interpreted by me (1pt min.). @ -no U/S interpreted by me (1pt. min.). @ -no What testing was considered but not performed or refused? (CT, X-rays, U/S, labs)? Why? @ -none What meds were considered but not given or refused? Why? @ -none Did you discuss the management of the patient with other professionals (professionals i.e. , PA, [facility], lab, RT, psych nurse, social sciences instructor, manufacturing process engineer, teacher, equal opportunity officer, piano case maker)? Give summary @ -no Was smoking cessation discussed for >3mins.? @ -no Was critical care preformed (if so, how long)? @ -no Were there social determinants of health that impacted care today? How? (Homelessness, low income, unemployed, alcoholism, drug addiction, transportation, low edu. Level, literacy, decrease access to med. care, care home, rehab)? @ -none Was there de-escalation of care discussed even if they declined (Discuss DNR or withdrawal of care, Hospice)? DNR status @ -no What co-morbidities impacted this encounter? (DM, HTN, Smoking, COPD, CAD, Cancer, CVA, ARF, Chemo, Hep., AIDS, mental health diagnosis, sleep apnea, morbid obesity)? @ -none Was patient admitted / discharged? Hospital course, mention meds given and route, prescriptions, significant lab abnormalities, going to OR and other pertinent info. @ - Undiagnosed new problem with uncertain prognosis? @ -no Drug Therapy requiring intensive monitoring for toxicity (Heparin, Nitro, Insuli n, Cardizem)? @ -no Were any procedures done? @ -no Diagnosis/symptom? @ - Acute, or Chronic, or Acute on Chronic? @ -Acute Uncomplicated (without systemic symptoms) or Complicated (systemic symptoms)? @ -Complicated Side effects of treatment? @ -no Exacerbation, Progression, or Severe Exacerbation? @ -exacerbation Poses a threat to life or bodily function? How? (Chest pain, [place], PR, pneumonia, PE, COPD, DKA, ARF, appy, cholecystitis, CVA, Diverticulitis, Homicidal, Suicidal, threat to staff... and all critical care pts) @ -yes Reevaluation #5: Differential Chest Pain: Stable Angina, Unstable Angina, STEMI, NSTEMI Aortic Dissection, Pneumothorax, Musculoskeletal, Esophageal Spasm GERD, Cholecystitis, Pancreatitis, Zoster, this is not meant to be an all-inclusive list. - Consultations Consultation #1: Spoke with [facility] who agrees to admit this patient Chest Pain MDM - MDM 69 female will be admitted for chest pain observation Disposition Clinical Impression: Chest pain, Unstable angina pectoris Disposition: ADMITTED IP TO THIS HOSP Condition: Fair Is patient prescribed a controlled substance at d/c from ED?: No Referrals: Pratik Arias MD [Primary Care Provider] - 1-2 days Time of Disposition: 06:20
[2024-12-13] MEDS: KETOROLAC 15 MG/ML 1 ML VIAL IVP STA (05:42)
[2024-12-13 06:02] LABS: Prothrombin Time 11.3 sec (10.0-12.5)
[2024-12-13 06:03] LABS: Basophils % (A) 0 %; Eosinophils # (A) 0.2 k/uL (0-0.7); Eosinophils % (A) 2 %; HCT 38.7 % (34.0-46.0); HGB 12.5 gm/dL (11.4-16.0); Lymphocytes # (A) 1.2 k/uL (1.0-4.8); Lymphocytes % (A) 13 %; MCH 30.7 pg (25.0-35.0); MCHC 32.4 g/dL (31.0-37.0); MCV 94.8 fL (80.0-100.0); Mean Platelet Volume 7.2; Monocytes # (A) 0.3 k/uL (0-1.0); Monocytes % (A) 4 %; Neutrophils # (A) 7.2 k/uL (1.3-7.7); Neutrophils % (A) 81 %; RBC 4.08 m/uL (3.80-5.40); RDW 13.9 % (11.5-15.5)
[2024-12-13 06:05] LABS: ALT 15 U/L (4-34); AST 23 U/L (14-36); African American GFR (CKD) 49 (>60 ml/min/1.73 sqM); Albumin 3.7 g/dL (3.5-5.0); Alkaline Phosphatase 70 U/L (38-126); Anion Gap 8 mmol/L; Blood Urea Nitrogen 31 mg/dL (7-17); Calcium 9.4 mg/dL (8.4-10.2); Carbon Dioxide 24 mmol/L (22-30); Chloride 108 mmol/L (98-107); Glucose 166 mg/dL (74-99); Lipase 66 U/L (23-300); Magnesium 1.9 mg/dL (1.6-2.3); Non-African American GFR(CKD) 42 (>60 ml/min/1.73 sqM); Platelet Count 164 k/uL (150-450); Potassium 4.5 mmol/L (3.5-5.1); Sodium 140 mmol/L (137-145); Total Bilirubin 0.5 mg/dL (0.2-1.3); Total Protein 6.3 g/dL (6.3-8.2)
[2024-12-13] MEDS ORDERED: NALOXONE 0.4 MG/ML 1 ML VIAL IV PRN (06:09)
[2024-12-13] MEDS ORDERED: ONDANSETRON 4 MG/2 ML VIAL IVP PRN (06:09)
[2024-12-13] MEDS ORDERED: HEPARIN SODIUM 1,000 UN/ML (10ML VL) IV PRN (06:10)
[2024-12-13 06:13] LABS: NT-Pro-B-Type Natriuretic Pept 2100 pg/mL
[2024-12-13] MEDS: SODIUM CHLORIDE 0.9% 1,000 ML IV SCH (06:19)
[2024-12-13] MEDS: HYDROmorphone 1 MG/ML 1 ML SYRINGE IVP STA (06:22)
[2024-12-13] MEDS: HEPARIN SODIUM 1,000 UN/ML (10ML VL) IV ONE (06:31)
[2024-12-13] MEDS: HEPARIN SOD,PORK IN 0.45% NACL 25,000 UNIT in 0.45% NACL 1 250ML.BAG IV SCH (06:32)
--- NOTE | 2024-12-13 06:40 | XR ---
EXAMINATION TYPE: XR chest 2V DATE OF EXAM: 12/13/2024 5:41 AM COMPARISON: Chest radiographs from total [id number] CLINICAL INDICATION: Female, 69 years old with history of Chest Pain; [facility] TECHNIQUE: XR chest 2V Frontal and lateral views of the chest. FINDINGS: Lungs/Pleura: There is no evidence of pleural effusion, focal consolidation, or pneumothorax. Pulmonary vascularity: Unremarkable. Heart/mediastinum: Cardiomediastinal silhouette is unremarkable. Musculoskeletal: No acute osseous pathology. Fixation hardware of the right shoulder appears intact. IMPRESSION: No acute cardiopulmonary disease/process. [facility], , 12/13/2024 6:36 AM
--- NOTE | 2024-12-13 12:35 | P.CRDCN ---
History of Present Illness History of present illness: HISTORY OF PRESENT ILLNESS: This is a 69-year-old female with a past medical history significant for aortic stenosis, hypertension, hyperlipidemia, diabetes, normal coronary arteries, and carotid atherosclerosis with bilateral carotid endarterectomy, and obesity. Patient follows in the office with Dr. Benites. We have been asked to see the patient in consultation for chest pain. Patient examined at the bedside in the emergency room. Patient states that this morning while she was sleeping she woke up with chest discomfort. She states the pain was in the middle of her chest without any radiation. She denied any shortness of breath. She denied having any palpitations. She states the pain is worse with deep inspiration. It is noted that the patient underwent cardiac catheterization in October [address] Benites revealing normal coronary arteries. Patient also has known severe aortic stenosis. She is supposed to be further evaluated outpatient for surgical replacement. DIAGNOSTICS: - EKG reveals sinus mechanism with nonspecific ST-T wave changes - Chest xray negative for acute process - Laboratory data: WBC 9.0. Hemoglobin 12.5. Platelet count 164. Sodium 140. Potassium 4.5. BUN 31. Creatinine 1.31. Magnesium 1.9. Troponin negative x 2. proBNP 2100. - Current home cardiac medications include amlodipine 5 mg daily, Lipitor 80 mg at night, aspirin 81 mg daily. - Most recent echocardiogram obtained in 11/29/2024 revealing ejection fraction 50%, mild pulmonary pretension, trileaflet aortic valve, severe aortic stenosis mean gradient 46 mmHg, mild TR - Cardiac catheterization history: 11/30/2024 revealing normal coronary arteries REVIEW OF SYSTEMS: At the time of my exam: CONSTITUTIONAL: Denies fever or chills. HEENT: Denies blurred vision, vision changes, or eye pain. Denies hemoptysis CARDIOVASCULAR: Denies chest pain. Denies orthopnea. Denies PND. Denies palpitations RESPIRATORY: Denies shortness of breath. GASTROINTESTINAL: Denies abdominal pain. Denies nausea or vomiting. HEMATOLOGIC: Denies bleeding disorders. GENITOURINARY: Denies any blood in urine. SKIN: Denies pruitis. Denies rash. PHYSICAL EXAM: VITAL SIGNS: Reviewed. GENERAL: Well-developed in no acute distress. HEENT: Head is normocephalic. Pupils are equal, round. Sclerae anicteric. Mucous membranes of the mouth are moist. Neck supple. No JVD or thyromegaly LUNGS: Respirations even and unlabored. Lungs essentially clear to auscultation bilaterally. HEART: Regular rate and rhythm. S1 and S2 heard. Systolic murmur noted. ABDOMEN: Soft. Nondistended. Nontender. EXTREMITIES: Normal range of motion. No clubbing or cyanosis. Peripheral pulses intact. No lower extremity edema NEUROLOGIC: Awake and alert. Oriented x 3. ASSESSMENT: Chest pain, troponin negative x 3 Normal coronary arteries, per cath, 11/30/2024 Severe aortic stenosis Hypertension Hyperlipidemia Chronic kidney disease History of CVA, 2022 History of seizure, 2022 History of asthma Diabetes Morbid obesity: BMI 45.9 History of carotid stenosis with bilateral carotid endarterectomy PLAN: Coronary event has been ruled out Resume home cardiac medications No need to obtain echocardiogram as this was performed in 10/2024 No further inpatient recommendations from a cardiac standpoint Patient to follow-up postdischarge with Dr. Benites and also with [facility] for evaluation of aortic valve replacement Nurse practitioner note has been reviewed by physician. Signing provider agrees with the documented findings, assessment, and plan of care documented by NON LICENSED NUCLEAR EQUIPMENT OPERATOR as a scribe. Past Medical History Past Medical History: Asthma, CVA/TIA, Diabetes Mellitus, Myocardial Infarction ([place]), Seizure Disorder Additional Past Medical History / Comment(s): foot drop Last Myocardial Infarction Date:: 2022 History of Any Multi-Drug Resistant Organisms: None Reported Past Surgical History: Adenoidectomy, Appendectomy, Back Surgery, Cholecystectomy, Heart Catheterization, Orthopedic Surgery, Tonsillectomy Additional Past Surgical History / Comment(s): rt leg, rt arm sx, back sx Past Anesthesia/Blood Transfusion Reactions: No Reported Reaction Past Psychological History: No Psychological Hx Reported Smoking Status: Never smoker Past Alcohol Use History: None Reported Past Drug Use History: None Reported Medications and Allergies Home Medications Medication Instructions Recorded Confirmed Type ARIPiprazole [Abilify] 2 mg PO DAILY 11/29/24 12/13/24 History Albuterol Inhaler [Ventolin Hfa 1 puff INHALATION RT-Q4H PRN 11/29/24 12/13/24 History Inhaler] Ammonium Lactate Lotion 1 applic TOPICAL BID 11/29/24 12/13/24 History [Lac-Hydrin 12% Lotion] Artificial Tears-Hypromellose 1 drop BOTH EYES Q4H PRN 11/29/24 12/13/24 History [Artificial Tear Drops] Aspirin EC [Ecotrin Low Dose] 81 mg PO DAILY 11/29/24 12/13/24 History Atorvastatin [Lipitor] 80 mg PO HS 11/29/24 12/13/24 History Biotin 10 mg PO DAILY 11/29/24 12/13/24 History Buprenorphine [Butrans 20 MCG/HOUR] 1 patch TRANSDERM TU 11/29/24 12/13/24 History Cholecalciferol (Vitamin D3) 125 mcg PO DAILY 11/29/24 12/13/24 History [Vitamin D3 (125 MCG = 5,000 IU)] Empagliflozin [Jardiance] 10 mg PO DAILY 11/29/24 12/13/24 History Escitalopram [Lexapro] 20 mg PO DAILY 11/29/24 12/13/24 History Famotidine [Pepcid] 20 mg PO DAILY 11/29/24 12/13/24 History Ferrous Sulfate [Iron (65 MG 325 mg PO DAILY 11/29/24 12/13/24 History Elemental)] Gabapentin 800 mg PO TID 11/29/24 12/13/24 History Levocetirizine Dihydrochloride 5 mg PO DAILY 11/29/24 12/13/24 History [Xyzal] Melatonin 5 mg PO HS 11/29/24 12/13/24 History Multivit-Min/FA/Lycopen/Lutein 1 tab PO DAILY 11/29/24 12/13/24 History [Centrum Silver Tablet] Nitroglycerin Sl Tabs [Nitrostat] 0.4 mg SL Q5M PRN 11/29/24 12/13/24 History Nystatin 100,000 Unit/gm Powd 1 applic TOPICAL BID 11/29/24 12/13/24 History [Mycostatin Powder] Tirzepatide [Mounjaro] 2.5 mg SQ SA 11/29/24 12/13/24 History traZODone HCL 100 mg PO HS 11/29/24 12/13/24 History amLODIPine [Norvasc] 5 mg PO DAILY #60 tab 12/01/24 12/13/24 Rx Allergies Allergy/AdvReac Type Severity Reaction Status Date / Time duloxetine [From Cymbalta] Allergy Rash/Hives Verified 12/13/24 05:30 sitagliptin [From Januvia] Allergy Rash/Hives Verified 12/13/24 05:30 Physical Exam Vitals: Vital Signs Temp Pulse Resp BP Pulse Ox 12/13/24 08:04 98.5 F 68 16 110/58 95 12/13/24 06:36 71 16 108/50 98 12/13/24 06:11 71 16 110/52 95 12/13/24 05:30 98 12/13/24 05:25 98.1 F 87 16 137/60 88 L Intake and Output 12/12/24 12/13/24 12/13/24 22:59 06:59 14:59 Other: Weight 106.594 kg Results 12/13/24 05:30 12/13/24 05:30 Cardiac Enzymes 12/13/24 12/13/24 Range/Units 05:30 05:30 AST 23 (14-36) U/L Troponin I <0.012 (0.000-0.034) ng/mL Coagulation 12/13/24 Range/Units 05:30 PT 11.3 (10.0-12.5) sec APTT 22.0 (22.0-30.0) sec CBC 12/13/24 Range/Units 05:30 WBC 9.0 (3.8-10.6) k/uL RBC 4.08 (3.80-5.40) m/uL Hgb 12.5 (11.4-16.0) gm/dL Hct 38.7 (34.0-46.0) % Plt Count 164 D (150-450) k/uL Comprehensive Metabolic Panel 12/13/24 Range/Units 05:30 Sodium 140 (137-145) mmol/L Potassium 4.5 (3.5-5.1) mmol/L Chloride 108 H (98-107) mmol/L Carbon Dioxide 24 (22-30) mmol/L BUN 31 H (7-17) mg/dL Creatinine 1.31 H (0.52-1.04) mg/dL Glucose 166 H (74-99) mg/dL Calcium 9.4 (8.4-10.2) mg/dL AST 23 (14-36) U/L ALT 15 (4-34) U/L Alkaline Phosphatase 70 (38-126) U/L Total Protein 6.3 (6.3-8.2) g/dL Albumin 3.7 (3.5-5.0) g/dL Current Medications Generic Name Dose Route Start Last Admin Trade Name Freq PRN Reason Stop Dose Admin Heparin Sodium (Porcine) 0 unit 12/13/24 06:10 Heparin Sodium 1,000 Un/Ml (10ml Vl) IV PER PROTOCOL PRN Low PTT Protocol Heparin Sodium/Sodium Chloride 250 mls @ 10 mls/hr 12/13/24 06:15 12/13/24 06:32 25,000 unit/ Sodium Chloride IV 9.381 units/kg/hr .Q24H JAKE 10 mls/hr Administration Protocol 9.381 UNITS/KG/HR Sodium Chloride 1,000 mls @ 75 mls/hr 12/13/24 06:15 12/13/24 06:19 Saline 0.9% IV 75 mls/hr .[id number] JAKE Administration Morphine Sulfate 4 mg 12/13/24 06:09 Morphine Sulfate 4 Mg/Ml Syringe IV Q4HR PRN Severe Pain (Scale 7 to 10) Naloxone HCl 0.2 mg 12/13/24 06:09 Naloxone 0.4 Mg/Ml 1 Ml Vial IV Q2M PRN Opioid Reversal Ondansetron HCl 4 mg 12/13/24 06:09 Ondansetron 4 Mg/2 Ml Vial IVP Q8HR PRN Nausea And Vomiting Intake and Output 12/12/24 12/13/24 12/13/24 22:59 06:59 14:59 Other: Weight 106.594 kg 12/13/24 05:30 12/13/24 05:30
[2024-12-13] MEDS ORDERED: ARTIFICIAL TEARS-HYPROMELLOSE DROPS 15 ML BTL BOTH EYES PRN (12:37)
[2024-12-13] MEDS ORDERED: ALBUTEROL NEBULIZED 2.5 MG/3 ML INHALATION PRN (12:37)
--- NOTE | 2024-12-13 12:39 | P.HPIM ---
History of Present Illness H&P Date: 12/13/24 Chief Complaint: Chest pain 69-year-old woman with medical history of severe aortic stenosis, hypertension, hyperlipidemia, diabetes, chronic narcotic dependence, asthma presented for evaluation of chest pain. Patient says that she started experiencing pain across her chest, stabbing nature. She also relates that she has been having increasing dyspnea and lower extremity swelling. She is noted to have a recent history of clean coronaries on angiogram, but is found to have severe aortic stenosis. She is following up with cardiology and cardiothoracic surgery for this as an outpatient. She denies fevers, chills, nausea, vomiting, palpitations, syncope, presyncope, cough, abdominal pain. In the emergency room, patient is afebrile, 110/58, heart rate 68, 95% on 1 L of nasal cannula. CBC is unremarkable. Basic metabolic panel shows creatinine of 1.31, her baseline is 1.6. Liver function test are unremarkable. BNP is 2100. Troponin was less than 0.012 x 3. Lipase was 66. Coags are unremarkable. EKG shows normal sinus rhythm, normal axis, borderline prolonged ID interval, good R wave progression throughout precordial leads. Chest x-ray demonstrates cardiomegaly, low inspiratory effort, dense pulmonary vasculature. Patient was admitted to medicine for further evaluation characterization of chest pain. All Systems reviewed and pertinent positives and negatives noted in HPI, all other symptoms are negative Gen: In NAD, non-toxic HEENT: normocephalic, atraumatic, hearing acuity is intant, mucous membranes moist CVS: perfusing all extremities well, no pitting edema, Respiratory: symmetric chest expansion, no accessory muscle use, GI: soft, NTTP, ND, : no suprapubic tenderness, no CVA tenderness MSK/Derm: no rashes, cyanosis, reproducible chest pain on palpation Neuro: CN II-XII intact, no motor weakness, Psych: cooperative, euthymic mood, judgment and insight is intact Labs and imaging as above Assessment/plan: Chest pain, likely musculoskeletal -Admit to observation, telemetry -Troponins are negative -Tylenol as needed -Resume Suboxone, patient is on med Severe aortic stenosis -Repeat echocardiogram -Cardiology consult Hypertension Hyperlipidemia Diabetes Asthma -Home medications reviewed and reconciled Patient is full code Past Medical History Past Medical History: Asthma, CVA/TIA, Diabetes Mellitus, Myocardial Infarction ([place]), Seizure Disorder Additional Past Medical History / Comment(s): foot drop Last Myocardial Infarction Date:: 2022 History of Any Multi-Drug Resistant Organisms: None Reported Past Surgical History: Adenoidectomy, Appendectomy, Back Surgery, Ch olecystectomy, Heart Catheterization, Orthopedic Surgery, Tonsillectomy Additional Past Surgical History / Comment(s): rt leg, rt arm sx, back sx Past Anesthesia/Blood Transfusion Reactions: No Reported Reaction Past Psychological History: No Psychological Hx Reported Smoking Status: Never smoker Past Alcohol Use History: None Reported Past Drug Use History: None Reported Medications and Allergies Home Medications Medication Instructions Recorded Confirmed Type ARIPiprazole [Abilify] 2 mg PO DAILY 11/29/24 12/13/24 History Albuterol Inhaler [Ventolin Hfa 1 puff INHALATION RT-Q4H PRN 11/29/24 12/13/24 History Inhaler] Ammonium Lactate Lotion 1 applic TOPICAL BID 11/29/24 12/13/24 History [Lac-Hydrin 12% Lotion] Artificial Tears-Hypromellose 1 drop BOTH EYES Q4H PRN 11/29/24 12/13/24 History [Artificial Tear Drops] Aspirin EC [Ecotrin Low Dose] 81 mg PO DAILY 11/29/24 12/13/24 History Atorvastatin [Lipitor] 80 mg PO HS 11/29/24 12/13/24 History Biotin 10 mg PO DAILY 11/29/24 12/13/24 History Buprenorphine [Butrans 20 MCG/HOUR] 1 patch TRANSDERM TU 11/29/24 12/13/24 History Cholecalciferol (Vitamin D3) 125 mcg PO DAILY 11/29/24 12/13/24 History [Vitamin D3 (125 MCG = 5,000 IU)] Empagliflozin [Jardiance] 10 mg PO DAILY 11/29/24 12/13/24 History Escitalopram [Lexapro] 20 mg PO DAILY 11/29/24 12/13/24 History Famotidine [Pepcid] 20 mg PO DAILY 11/29/24 12/13/24 History Ferrous Sulfate [Iron (65 MG 325 mg PO DAILY 11/29/24 12/13/24 History Elemental)] Gabapentin 800 mg PO TID 11/29/24 12/13/24 History Levocetirizine Dihydrochloride 5 mg PO DAILY 11/29/24 12/13/24 History [Xyzal] Melatonin 5 mg PO HS 11/29/24 12/13/24 History Multivit-Min/FA/Lycopen/Lutein 1 tab PO DAILY 11/29/24 12/13/24 History [Centrum Silver Tablet] Nitroglycerin Sl Tabs [Nitrostat] 0.4 mg SL Q5M PRN 11/29/24 12/13/24 History Nystatin 100,000 Unit/gm Powd 1 applic TOPICAL BID 11/29/24 12/13/24 History [Mycostatin Powder] Tirzepatide [Mounjaro] 2.5 mg SQ SA 11/29/24 12/13/24 History traZODone HCL 100 mg PO HS 11/29/24 12/13/24 History amLODIPine [Norvasc] 5 mg PO DAILY #60 tab 12/01/24 12/13/24 Rx Allergies Allergy/AdvReac Type Severity Reaction Status Date / Time duloxetine [From Cymbalta] Allergy Rash/Hives Verified 12/13/24 05:30 sitagliptin [From Januvia] Allergy Rash/Hives Verified 12/13/24 05:30 Physical Exam Osteopathic Statement: *. No significant issues noted on an osteopathic structural exam other than those noted in the History and Physical/Consult. Vitals: Vital Signs Temp Pulse Resp BP Pulse Ox 12/13/24 12:07 60 18 111/61 95 12/13/24 11:40 98.1 F 58 L 18 121/48 96 12/13/24 10:25 58 L 16 100/52 96 12/13/24 09:17 60 22 115/57 95 12/13/24 08:04 98.5 F 68 16 110/58 95 12/13/24 06:36 71 16 108/50 98 12/13/24 06:11 71 16 110/52 95 12/13/24 05:30 98 12/13/24 05:25 98.1 F 87 16 137/60 88 L Intake and Output 12/12/24 12/13/24 12/13/24 22:59 06:59 14:59 Other: Weight 106.594 kg Results CBC & Chem 7: 12/13/24 05:30 12/13/24 05:30 Labs: Abnormal Lab Results - Last 24 Hours (Table) 12/13/24 Range/Units 05:30 Chloride 108 H (98-107) mmol/L BUN 31 H (7-17) mg/dL Creatinine 1.31 H (0.52-1.04) mg/dL Glucose 166 H (74-99) mg/dL
[2024-12-13] MEDS: DAPAGLIFLOZIN PROPANEDIOL 5 MG TABLET PO SCH (12:55)
[2024-12-13] MEDS: ASPIRIN 81 MG PO SCH (12:55)
[2024-12-13] MEDS: FERROUS SULFATE 325 MG TAB PO SCH (12:55)
[2024-12-13] MEDS: FAMOTIDINE 20 MG TAB PO SCH (12:55)
[2024-12-13] MEDS: GABAPENTIN 400 MG CAP PO SCH (12:56)
[2024-12-13] MEDS: ESCITALOPRAM 20 MG TAB PO SCH (12:56)
[2024-12-13] MEDS: ARIPiprazole 2 MG TAB PO SCH (12:58)
[2024-12-13] MEDS: ACETAMINOPHEN TAB 325 MG TAB PO PRN (12:58)
[2024-12-13] MEDS: MORPHINE SULFATE 4 MG/ML SYRINGE IV PRN (13:54)
--- NOTE | 2024-12-13 14:47 | P.DS ---
Providers Date of admission: 12/13/24 06:09 Expected date of discharge: 12/13/24 Attending physician: Los Pritchard Consults: 12/13/24 06:09 Consult Physician Routine Consulting Provider: Urban Romano Consult Reason/Comments: cp Do you want consulting provider notified?: Yes Primary care physician: Pratik Arias MD Hospital Course: Chest pain, musculoskeletal Severe aortic stenosis Hypertension Hyperlipidemia Diabetes Asthma 69-year-old woman with medical history of severe aortic stenosis, hypertension, hyperlipidemia, diabetes, chronic narcotic dependence, asthma presented for evaluation of chest pain. In the emergency room, patient is afebrile, 110/58, heart rate 68, 95% on 1 L of nasal cannula. CBC is unremarkable. Basic metabolic panel shows creatinine of 1.31, her baseline is 1.6. Liver function test are unremarkable. BNP is 2100. Troponin was less than 0.012 x 3. Lipase was 66. Coags are unremarkable. EKG shows normal sinus rhythm, normal axis, borderline prolonged HI interval, good R wave progression throughout precordial leads. Chest x-ray demonstrates cardiomegaly, low inspiratory effort, dense pulmonary vasculature. Patient was admitted to medicine for further evaluation characterization of chest pain. Patient was seen and evaluated by cardiology, who did not feel the need to repeat echocardiogram and who felt that pain was m usculoskeletal in nature. Patient was subsequently discharged home with recommendations for pain control. Patient should follow-up with [facility], cardiology, cardiothoracic surgery as needed. See same day H&P for phx Patient Condition at Discharge: Fair Plan - Discharge Summary New Discharge Prescriptions: New Acetaminophen Tab [Tylenol] 650 mg PO Q4HR PRN tab PRN Reason: Fever And/ Or Pain Continue Artificial Tears-Hypromellose [Artificial Tear Drops] 1 drop BOTH EYES Q4H PRN PRN Reason: Dry Eye(S) Albuterol Inhaler [Ventolin Hfa Inhaler] 1 puff INHALATION RT-Q4H PRN PRN Reason: Shortness Of Breath Or Wheezing Nystatin 100,000 Unit/gm Powd [Mycostatin Powder] 1 applic TOPICAL BID Atorvastatin [Lipitor] 80 mg PO HS Tirzepatide [Mounjaro] 2.5 mg SQ SA Multivit-Min/FA/Lycopen/Lutein [Centrum Silver Tablet] 1 tab PO DAILY Biotin 10 mg PO DAILY Levocetirizine Dihydrochloride [Xyzal] 5 mg PO DAILY Famotidine [Pepcid] 20 mg PO DAILY Escitalopram [Lexapro] 20 mg PO DAILY Empagliflozin [Jardiance] 10 mg PO DAILY amLODIPine [Norvasc] 5 mg PO DAILY #60 tab Nitroglycerin Sl Tabs [Nitrostat] 0.4 mg SL Q5M PRN PRN Reason: Chest Pain Buprenorphine [Butrans 20 MCG/HOUR] 1 patch TRANSDERM TU traZODone HCL 100 mg PO HS Ammonium Lactate Lotion [Lac-Hydrin 12% Lotion] 1 applic TOPICAL BID Melatonin 5 mg PO HS Gabapentin 800 mg PO TID Ferrous Sulfate [Iron (65 MG Elemental)] 325 mg PO DAILY Aspirin EC [Ecotrin Low Dose] 81 mg PO DAILY ARIPiprazole [Abilify] 2 mg PO DAILY Cholecalciferol (Vitamin D3) [Vitamin D3 (125 MCG = 5,000 IU)] 125 mcg PO DAILY Discharge Medication List ARIPiprazole [Abilify] 2 mg PO DAILY 11/29/24 [History] Albuterol Inhaler [Ventolin Hfa Inhaler] 1 puff INHALATION RT-Q4H PRN 11/29/24 [History] Ammonium Lactate Lotion [Lac-Hydrin 12% Lotion] 1 applic TOPICAL BID 11/29/24 [History] Artificial Tears-Hypromellose [Artificial Tear Drops] 1 drop BOTH EYES Q4H PRN 11/29/24 [History] Aspirin EC [Ecotrin Low Dose] 81 mg PO DAILY 11/29/24 [History] Atorvastatin [Lipitor] 80 mg PO HS 11/29/24 [History] Biotin 10 mg PO DAILY 11/29/24 [History] Buprenorphine [Butrans 20 MCG/HOUR] 1 patch TRANSDERM TU 11/29/24 [History] Cholecalciferol (Vitamin D3) [Vitamin D3 (125 MCG = 5,000 IU)] 125 mcg PO DAILY 11/29/24 [History] Empagliflozin [Jardiance] 10 mg PO DAILY 11/29/24 [History] Escitalopram [Lexapro] 20 mg PO DAILY 11/29/24 [History] Famotidine [Pepcid] 20 mg PO DAILY 11/29/24 [History] Ferrous Sulfate [Iron (65 MG Elemental)] 325 mg PO DAILY 11/29/24 [History] Gabapentin 800 mg PO TID 11/29/24 [History] Levocetirizine Dihydrochloride [Xyzal] 5 mg PO DAILY 11/29/24 [History] Melatonin 5 mg PO HS 11/29/24 [History] Multivit-Min/FA/Lycopen/Lutein [Centrum Silver Tablet] 1 tab PO DAILY 11/29/24 [History] Nitroglycerin Sl Tabs [Nitrostat] 0.4 mg SL Q5M PRN 11/29/24 [History] Nystatin 100,000 Unit/gm Powd [Mycostatin Powder] 1 applic TOPICAL BID 11/29/24 [History] Tirzepatide [Mounjaro] 2.5 mg SQ SA 11/29/24 [History] traZODone HCL 100 mg PO HS 11/29/24 [History] amLODIPine [Norvasc] 5 mg PO DAILY #60 tab 12/01/24 [Rx] Acetaminophen Tab [Tylenol] 650 mg PO Q4HR PRN tab 12/13/24 [Rx] Follow up Appointment(s)/Referral(s): Pratik Arias MD [Primary Care Provider] - 1-2 days Gary Rousseau MD [Medical Doctor] - 1 Week Discharge Disposition: HOME SELF-CARE
[2024-12-13 15:40] VITALS: RESP 16
[2024-12-13 18:28] VITALS: BP 108/58; PULSE 62; TEMP 98.4
[2024-12-13] MEDS ORDERED: MELATONIN 5 MG TABLET PO SCH (21:00)
[2024-12-13] MEDS ORDERED: ATORVASTATIN 80 MG TAB PO SCH (21:00)
[2024-12-13] MEDS ORDERED: traZODone HCL 100 MG TAB PO SCH (21:00)
[2024-12-14] MEDS ORDERED: CHOLECALCIFEROL 125 MCG (5000 IU) TABLET PO SCH (09:00)
[2024-12-14] MEDS ORDERED: LORATADINE 10 MG TAB PO SCH (09:00)
[2024-12-14] MEDS ORDERED: NON FORMULARY DRUG (Buprenorphine [Butrans 20 Mcg/Hour] 20 MCG/HOUR Patch) TRANSDERM SCH (09:00)
[2024-12-14] MEDS ORDERED: amLODIPine 5 MG TAB PO SCH (09:00)
== END 2024-12-13 18:26 | disposition home or self-care (01) ==
LOC: EC 05:24 → 6NMEDSUR 06:09
PROVIDERS: ADMIT Student in an Organized Health Care Education/Training Program; ATTEND Student in an Organized Health Care Education/Training Program
DX: R07.89 Other chest pain (principal); J45.909 Unspecified asthma, uncomplicated; E78.5 Hyperlipidemia, unspecified; I12.9 Hypertensive chronic kidney disease with stage 1 through stage 4 chronic kidney disease, or unspecified chronic kidney disease; N18.9 Chronic kidney disease, unspecified; E11.22 Type 2 diabetes mellitus with diabetic chronic kidney disease; I35.0 Nonrheumatic aortic (valve) stenosis; I25.2 Old myocardial infarction; F17.200 Nicotine dependence, unspecified, uncomplicated; E66.01 Morbid (severe) obesity due to excess calories; Z68.42 Body mass index [BMI] 45.0-49.9, adult; Z86.73 Personal history of transient ischemic attack (TIA), and cerebral infarction without residual deficits; Z79.82 Long term (current) use of aspirin; Z79.84 Long term (current) use of oral hypoglycemic drugs; Z79.899 Other long term (current) drug therapy
CPT/HCPCS: 96365; 96366; 96375; 99285; 36415; 93005; 83880; 80053; 83690; 83735; 84484; 85025; 85610; 85730; 71046; G0378; J2270; J1644 ×2; J1171; J1885

== ENCOUNTER 2025-02-07 11:45 | Day surgery (SDC) | payer OTHER ==
[~2025-02-07 11:45] MED LIST: BENZOCAINE SPRAY 1 CAN TOPICAL PRN; MIDAZOLAM 2 MG/2 ML VIAL IV PRN; fentaNYL (PF) 50 MCG/ML 5 ML AMP IVP PRN
[2025-02-07 12:08] LABS: Glucose,Whole Blood 116 mg/dL (70-110)
[2025-02-07 12:14] VITALS: RESP 16; TEMP 97.7
[2025-02-07] MEDS: BENZOCAINE SPRAY 1 EACH MM ONE (13:09)
[2025-02-07] MEDS: MIDAZOLAM 2 MG/2 ML VIAL IVP ONE ×2 (13:10→13:12)
[2025-02-07] MEDS: fentaNYL (PF) 50 MCG/ML 2 ML AMP IVP ONE ×2 (13:11→13:12)
[2025-02-07] MEDS: IV FLUID CONTINUATION 1,000 ML IV ONE (13:33)
[2025-02-07 17:48] VITALS: BP 146/64; PULSE 80
--- NOTE | 2025-02-07 23:17 | P.TEE ---
Description of Procedure(s): Procedure performed: Transesophageal Echocardiogram with color flow doppler, pulsed wave doppler and continuous wave doppler, moderate conscious sedation Moderate conscious sedation: Moderate conscious sedation was supplied with direct supervision of myself using Versed and Fentanyl. Complications: none Indications: Aortic stenosis PROCEDURE: After the risks, benefits and alternatives of the above mentioned procedure was explained in detail with the patient, informed consent was obtained. Patient was brought to the lab in a fasting state. Patient was given IV Versed and Fentanyl for sedation. The throat was sprayed with Hurricane to anesthetize the throat. A lubricated Omni probe was then introduced into the esophagus and stomach and multiple views were obtained. 2D echo with color flow doppler, pulsed wave doppler and continuous wave doppler was utilized. Agitated saline bubbles were injected to assess for any intra-atrial shunt. The probe was then removed. Patient tolerated the procedure well. Patient was transferred to the post procedure area in stable and satisfactory condition. FINDINGS: 1. The aortic valve appears to be bicuspid with severe aortic stenosis with ALL 0.4cm2 by planimetry. 2. The mitral valve appears be normal with mild to moderate mitral regurgitation. 3. Tricuspid valve appears to be normal. 4. There is a PFO with left to right shunt. + Bubble study 5. Left atrial appendage is free of clot. 6. There is linear echodensity/ tissue traversing across the right upper portion of the left atrium appearing to isolate the right upper pulmonary vein. Differential includes cor triatriatum vs anomalous pulmonary venous return. Consider CTA or cardiac MRI if clinically indicated.
== END 2025-02-07 14:49 | disposition home or self-care (01) ==
LOC: CATHCVL 11:45
PROVIDERS: ATTEND Internal Medicine
DX: I35.0 Nonrheumatic aortic (valve) stenosis (principal); I08.0 Rheumatic disorders of both mitral and aortic valves; E78.5 Hyperlipidemia, unspecified; I50.32 Chronic diastolic (congestive) heart failure; I13.0 Hypertensive heart and chronic kidney disease with heart failure and stage 1 through stage 4 chronic kidney disease, or unspecified chronic kidney disease; N18.9 Chronic kidney disease, unspecified; Z86.73 Personal history of transient ischemic attack (TIA), and cerebral infarction without residual deficits; Z79.82 Long term (current) use of aspirin
CPT/HCPCS: 93312; 93320; 93325; J2250; J3010

== ENCOUNTER → 2025-02-08 | Outpatient (CLI) | payer OTHER ==
[2025-02-08 07:38] LABS: Glucose,Whole Blood 108 mg/dL (70-110)
[2025-02-08 07:41] VITALS: BP 179/77; PULSE 81; RESP 16; TEMP 97.8
[2025-02-08] MEDS: EMPTY BAG 1 BAG with SODIUM CHLORIDE 0.9% 1,000 ML IV ONE (07:43)
[2025-02-08 08:05] LABS: ALT 16 U/L (4-34); AST 24 U/L (14-36); African American GFR (CKD) 43 (>60 ml/min/1.73 sqM); Albumin/Globulin Ratio 1.2; Alkaline Phosphatase 79 U/L (38-126); Anion Gap 8 mmol/L; Blood Urea Nitrogen 31 mg/dL (7-17); Calcium 9.5 mg/dL (8.4-10.2); Carbon Dioxide 30 mmol/L (22-30); Chloride 101 mmol/L (98-107); Globulin 3.3 g/dL; Glucose 107 mg/dL (74-99); Non-African American GFR(CKD) 37 (>60 ml/min/1.73 sqM); Potassium 4.3 mmol/L (3.5-5.1); Sodium 139 mmol/L (137-145); Total Bilirubin 0.5 mg/dL (0.2-1.3); Total Protein 7.3 g/dL (6.3-8.2)
--- NOTE | 2025-02-08 11:52 | CT ---
EXAMINATION TYPE: CT angiogram, neck, chest, abdomen, pelvis DATE OF EXAM: 02/08/2025 COMPARISON: Plain film CLINICAL INDICATION: Female, 69 years old with history of I35.0 NONRHEUMATIC AORTIC (VALVE) STENOSIS; TAVR TECHNIQUE: CT Angio of the Neck, chest, abdomen and pelvis is performed with IV contrast; Helical imaging obtain ed through the chest, abdomen and pelvis during arterial phase dynamic administration of radiographic contrast intravenously. CONTRAST: 140 mL of Isovue 370. CT DLP: 936993 mGycm, Automated exposure control for dose reduction was used. CT CTDI: mGy FINDINGS: See report from [facility] regarding preprocedural planning HEART AND PERICARDIUM: The heart is moderately enlarged. There is no pericardial effusion. Mild coron gretta artery calcifications present. Moderate Thickening and calcification of aortic valve present. AV Calcification Severity: Moderate/Severe ARTERIAL VASCULATURE: The aortic arch and thoracic aorta demonstrate a normal course and caliber. The pulmonary outflow tra ct appears within normal limits for size. The thoracic aorta is normal in course and caliber. There is no evidence of aortic dissection, aneurysm or acute aortic injury. Great arch vessels patent and n ormal in course and caliber. Mild atherosclerotic changes of the thoracic aorta. PULMONARY ARTERIAL VASCULATURE: Normal caliber., No evidence for central filling defect. NECK AND THYROID: No significant findings. The carotid bifurcations are patent. CHEST: LUNGS: No acute area of infiltrative or consolidative change. LARGE AIRWAYS: Central airways are patent. PLEURAL: No pleural effusion or thickening. No pneumothorax. MEDIASTINUM AND FELIPA: No mediastinal or hilar lymphadenopathy or soft tissue mass. SOFT TISSUES/LYMPH NODES: Unremarkable.Normal. MUSCULOSKELETAL: No acute osseous abnormalities ABDOMEN/PELVIS: Please note arterial phase of the imaging limits detailed evaluation of the solid abdominal organs. ABDOMEN LIVER: Diffusely hypoattenuating parenchyma. GALLBLADDER AND BILE DUCTS: The gallbladder is surgically absent. PANCREAS: Unremarkable. SPLEEN: Unremarkable. ADRENAL GLANDS: Unremarkable. KIDNEYS AND URETERS: No evidence of hydronephrosis or renal calculus. The ureters are unremarkable. PELVIS BLADDER: Unremarkable REPRODUCTIVE: The uterus is surgically absent. ABDOMEN & PELVIS STOMACH AND BOWEL: No evidence of bowel obstruction. Postsurgical changes to the gastric lumen. PERITONEUM/RETROPERITONEUM: No evidence of pneumoperitoneum or free fluid. VASCULATURE: Bilateral common iliac vein stent grafts. MUSCULOSKELETAL: No acute osseous abnormalities, surgical changes to the spine with fixation hardware at L4-L5 and S1. Discectomy at L4-L5 and L5-S1. Right hip arthroplasty with streak artifact present. LYMPH NODES: No gross evidence for lymphadenopathy. SOFT TISSUE/ABDOMINAL WALL: Unremarkable Other Lines/Tubes/Devices/Hardware: None IMPRESSION: 1. Moderate/Severe calcifications of the aortic valve. 2. No acute process. 3. See report from [employer] regarding preprocedural planning 4. Moderate cardiomegaly. 5. Hepatic steatosis. 6. Post surgical changes gastric lumen. 7. Abdomen, and iliac vein stents bilaterally. 8. [facility], , 02/08/2025 11:50 AM
== END | disposition home or self-care (01) ==
LOC: LABWHC1 06:53
PROVIDERS: ATTEND Thoracic Surgery (Cardiothoracic Vascular Surgery)
DX: Z01.818 Encounter for other preprocedural examination (principal); E87.8 Other disorders of electrolyte and fluid balance, not elsewhere classified; R58 Hemorrhage, not elsewhere classified; E07.9 Disorder of thyroid, unspecified; I35.0 Nonrheumatic aortic (valve) stenosis; R35.0 Frequency of micturition; E11.9 Type 2 diabetes mellitus without complications; N28.9 Disorder of kidney and ureter, unspecified; E78.5 Hyperlipidemia, unspecified; K76.0 Fatty (change of) liver, not elsewhere classified; I51.7 Cardiomegaly; Z79.01 Long term (current) use of anticoagulants; Z98.890 Other specified postprocedural states
CPT/HCPCS: 80053; 71275; 74174; 93005; 36415; Q9967

== ENCOUNTER 2025-02-15 19:30 | Outpatient (CLI) | payer OTHER ==
--- NOTE | 2025-02-23 13:38 | P.PCN ---
Description of Procedure: POLYSOMNOGRAPHY REPORT PROCEDURE(S)/DATE(S): Polysomnography 02/15/2025 CLINICAL: Patient has been seen in the sleep center for evaluation of obstructive sleep apnea-hypopnea syndrome. Please see my consultation. Sleep study has been done for evaluation of patient breathing during the sleep. PROCEDURE: The standard montage for clinical polysomnography included the electroencephalogram, the electrooculogram, the mentalis surface electromyography and Lead II cardiography. The respiratory battery consisted of measurements of nasal/buccal air flow, pressure transducer measurements from nose, thoracic and/or abdominal effort and intercostal surface electromyography. Video monitoring has been done to check for any parasomnia events. Nocturnal oxyhemoglobin saturations were obtained by finger oximetry. Step-hankins titration with positive airway pressure was utilized to control the respiratory events, if necessary. RESULTS: During the diagnostic sleep study sleep efficiency was slightly decreased to 83.4%. Latency to sleep onset was prolonged to 56.5 min. Sleep architecture showed stage NI was increased to 15.2%, Delta sleep was absent 0%, REM sleep was short 12.1%. Respiratory channel showed 1 obstructive apneas, 0 mixed apneas, 0 central apneas, 558 hypopneas with lowest oxygen level 66%. Total apnea hypopnea index was 103.8, oxygen level was below or equal 88% for 191.0 minutes. Heart rate was in the range between 71 and 77, average 74. EMG showed 0 periodic limb movements per hour with 0 micro-arousals per hour. IMPRESSIONS: 1. Extremely severe obstructive sleep apnea hypopnea syndrome with extremely severe oxygen desaturation. 2. No significant periodic limb movements have been documented. Please see other impressions from consultation PLAN: 1. The patient will have PAP titration for correction of respiratory abnormalities during the sleep. 2. Losing weight program. 3. Sleep hygiene with regular time in bed for at least 7-1/2 hours. 4. No driving if feeling sleepiness. Thank you very much for allowing me to participate in the management of your patient. Sincerely, Cristino Jordan MD, PhD, FAASM. Diplomat of [place] [employer], Sleep Medicine Board by [place] [employer] [facility] [place] cc: Pratik Arias MD
== END 2025-02-16 06:30 | disposition home or self-care (01) ==
LOC: 3 N SLEEP 19:30
PROVIDERS: ATTEND Internal Medicine
DX: G47.33 Obstructive sleep apnea (adult) (pediatric) (principal); Z88.8 Allergy status to other drugs, medicaments and biological substances
CPT/HCPCS: 95810

== ENCOUNTER 2025-04-04 19:38 | Outpatient (CLI) | payer OTHER ==
--- NOTE | 2025-04-11 12:39 | P.PCN ---
Description of Procedure: CLINICAL: Titration with positive air pressure has been done for correction of respiratory abnormalities during sleep. DESCRIPTION OF PROCEDURE: The standard montage for clinical polysomnography included the electroencephalogram, the electrocardiogram, the mentalis surface electromyography and Lead II cardiography. The respiratory battery consisted of measurements of nasal /buccal air flow, pressure transducer measurements from the nose, thoracic and /or abdominal effort and intercostal surface electromyography. Video monitoring has been done to check for any parasomnia events. Nocturnal oxyhemoglobin saturations were obtained by finger oximetry. Step-hankins titration with positive airway pressure was utilized to control respiratory events. Raw data of sleep recording has been reviewed and is adequate. RESULTS: Sleep efficiency was very slightly decreased to 85.0%. Latency to sleep onset was borderline 29.0 minutes.]. Sleep architecture showed stage N1 slightly increased to 9.8%, Delta sleep was absent 0%, REM sleep was normal 23.8%. Heart rate was minimum 60 BPM, maximum 68 BPM, average 63 BPM. EMG showed 0 periodic limb movements per hour with 0 micriarousals per hour. PAP titration have been done with CPAP up to the pressure 10 cm H2O. Patient had problems with CPAP, switched to BPAP. BPAP titrated up to 18/14 cm H2O. The best results were at the pressure 9 cm H2O. Apnea hypopnea index reduced to 0, but patient was at that pressure only for 22 6 minutes of non-REM sleep, no REM sleep have been documented at that pressure. On all others pressure apnea hypopnea index in very high range, lowest 25.3. IMPRESSION: 1. Extremely severe obstructive sleep apnea hypopnea syndrome with apnea hypopnea index 103.8 and oxygen desaturation to 66% improved on PAP treatment. 2. No significant periodic limb movements have been documented. Please see other impressions from consultation. PLAN: 1. The patient will have treatment with positive air pressure equipment with the level of pressure auto BiPAP maximal inspiratory pressure 21 and minimal expiratory pressure 9 cm H2O and should use it every night for the whole night. 2. Watching and losing weight. 3. Sleep hygiene with regular time in bed for at least 8 hours. 4. No driving if feeling any sleepiness. 5. I will see the patient for follow up visit to explain the results of the test, recommendations, check compliance with treatment and make any necessary adjustment related to mask fitting, pressure and humidification. Thank you very much for allowing me to participate in the management of your patient. Sincerely, Cristino Jordan MD, PhD, FAASM Diplomat of [place] [employer] Sleep Medicine Board of [place] [employer] Professor of [facility] [place] cc: Keagan Campos DO
== END 2025-04-05 07:00 | disposition home or self-care (01) ==
LOC: 3 N SLEEP 19:38
PROVIDERS: ATTEND Internal Medicine
DX: G47.33 Obstructive sleep apnea (adult) (pediatric) (principal); Z99.89 Dependence on other enabling machines and devices; Z88.8 Allergy status to other drugs, medicaments and biological substances
CPT/HCPCS: 95811

== ENCOUNTER 2025-04-13 05:43 | Inpatient (IN) | payer OTHER ==
[2025-04-13] MEDS ORDERED: CLEVIDIPINE BUTYRATE 25 MG in EMPTY BAG 1 BAG IV PRN (06:00)
[2025-04-13] MEDS ORDERED: ceFAZolin 2 GM in DEXTROSE 5% IN WATER 50 ML IVPB ONE (06:00)
[2025-04-13] MEDS ORDERED: NITROGLYCERIN-D5W PMX 25 MG/250 ML BTL IV PRN (06:00)
[2025-04-13] MEDS ORDERED: LACTATED RINGERS 1,000 ML IV SCH (06:00)
[2025-04-13] MEDS ORDERED: TRANEXAMIC ACID 2,000 MG in SODIUM CHLORIDE 0.9% 80 ML IV PRN (06:00)
[2025-04-13] MEDS ORDERED: PROTAMINE SULFATE 250 MG in EMPTY BAG 1 BAG IV PRN (06:00)
[2025-04-13] MEDS: ATORVASTATIN 10 MG TAB PO ONE (06:00)
[2025-04-13] MEDS ORDERED: INSULIN REGULAR 100 UNIT in SODIUM CHLORIDE 0.9% 100 ML IV PRN (06:00)
[2025-04-13] MEDS ORDERED: SODIUM CHLORIDE 0.9% 500 ML 500 ML INTRAARTER PRN (06:00)
[2025-04-13] MEDS ORDERED: ELECTROLYTE-A SOLUTION 1,000 ML with POTASSIUM CHLORIDE 100 MEQ, MAGNESIUM SULFATE 16 M... IV PRN (06:00)
[2025-04-13] MEDS: ASPIRIN 325 MG TAB PO ONE (06:22)
[2025-04-13] MEDS: CLOPIDOGREL 75 MG TAB PO ONE (06:22)
[2025-04-13] MEDS: METOPROLOL TARTRATE 25 MG TAB PO ONE (06:25)
[2025-04-13 06:44] LABS: Glucose,Whole Blood 122 mg/dL (70-110)
[2025-04-13] MEDS: IV FLUID CONTINUATION 1,000 ML IV ONE (06:58)
[2025-04-13] MEDS ORDERED: PROPOFOL 10 MG/ML 20 ML VIAL IV ONE (07:48)
[2025-04-13] MEDS ORDERED: ROCURONIUM 10 MG/ML (5 ML VIAL) IV ONE (07:48)
[2025-04-13] MEDS ORDERED: PHENYLEPHRINE 10 MG/ML VIAL ONE (07:48)
[2025-04-13] MEDS ORDERED: GLYCOPYRROLATE 0.2 MG/ML 2 ML VIAL ONE (07:48)
[2025-04-13] MEDS ORDERED: ePHEDrine 50 MG/ML 1 ML VIAL ONE (07:48)
[2025-04-13] MEDS ORDERED: fentaNYL (PF) 50 MCG/ML 2 ML AMP ONE (07:48)
[2025-04-13] MEDS ORDERED: ETOMIDATE 2 MG/ML 10 ML VIAL ONE (07:48)
[2025-04-13] MEDS ORDERED: PROTAMINE SULFATE 10 MG/ML 25 ML VIAL IV ONE (07:48)
[2025-04-13] MEDS ORDERED: NEOSTIGMINE 1 MG/ML 10 ML VIAL ONE (07:48)
[2025-04-13] MEDS ORDERED: MIDAZOLAM 2 MG/2 ML VIAL ONE (07:48)
[2025-04-13] MEDS: IOPAMIDOL-370 100ML BTL INJ ONE (10:09)
--- NOTE | 2025-04-13 10:57 | P.ANPRN ---
Procedure Note - Anesthesia - Invasive Line Left Arterial Line Time Out Performed: Yes ([id number]) Date of Procedure: 04/13/25 Time of Procedure: 07:36 Location of Patient: CVL Preparation: Sterile Prep, Sterile Dressing Arterial Line Location: Briachial (LEFT) Ultrasound Used: No Purpose - Visualization and Identification of Vasculature: No Needle Guage: 20G Image Stored and Saved: No Narrative: Invasive line placement per sterile protocol utilized. LEFT BRACHIAL PLACED IN 1 ATTEMPT AFTER MULTIPLE ATTEMPTS AT LEFT RADIAL. LUMEN BLED AND FLUSHED. SECURED AND DRESSED
--- NOTE | 2025-04-13 11:02 | P.ANPRN ---
Procedure Note - Anesthesia - ALICIA Intraop Pre Bypass ALICIA Intraop - Anesthesia Indication: AORTIC STENOSIS Date of Procedure: 04/13/25 Pre-operative Diagnosis: AORTIC STENOSIS Post-operative Diagnosis: SAME Surgeon: Jose Angel Farris Left Ventricle: NO RWMAS Ejection Fraction: Other (35-40) Regional Wall Motion Abnormalities: None Left Ventricle Hypertrophy: No R. Ventricle Function: Normal Anatomy: Trileaflet Aortic Stenosis: Severe (P59,M35. Severe restriction in valve opening) Aortic Regurgitation: None Mitral Stenosis: None Mitral Regurgitation: Mild Tricuspid Stenosis: None Tricuspid Regurgitation: Trace Pulmonic Stenosis: None Pulmonic Regurgitation: None R. Atrial Dilation: No R. Atrial PFO: No L. Atrial Dilation: No Aortic Dissection: No Aortic Calcification: None Plural Effusion: None
[2025-04-13 11:05] LABS: Glucose,Whole Blood 108 mg/dL (70-110)
--- NOTE | 2025-04-13 11:05 | P.ANPRN ---
Procedure Note - Anesthesia - ALICIA Intraop Post Bypass ALICIA Intraop Post Bypass Procedure Performed: tavr Left Ventricle: unchanged Ejection Fraction: Other (35-40) Regional Wall Motion Abnormalities: None R. Ventricle Function: Normal Aortic Valve: tavr in place. Mild ant perioperative leak initially, decreasing after 5 minutes. unidirectional. residual mean 3 Mitral Valve: Unchanged Tricuspid: Unchanged Pulmonic: Unchanged Aortic Dissection: No
[2025-04-13] MEDS ORDERED: DEXTROSE 50% SYRINGE 50 ML IVP PRN ×2 (11:14)
[2025-04-13] MEDS ORDERED: ONDANSETRON 4 MG/2 ML VIAL IVP PRN (11:14)
[2025-04-13] MEDS ORDERED: ARTIFICIAL TEARS-HYPROMELLOSE DROPS 15 ML BTL BOTH EYES PRN (11:14)
[2025-04-13] MEDS ORDERED: Magnesium Replacement Protocol 1 EACH MISC MISCELLANE PRN (11:14)
[2025-04-13] MEDS ORDERED: IPRATROPIUM-ALBUTEROL 3 ML NEB INHALATION PRN (11:14)
[2025-04-13] MEDS ORDERED: Potassium Replacement Protocol 1 EACH MISC MISCELLANE PRN (11:14)
--- NOTE | 2025-04-13 11:27 | P.OP ---
Date of Procedure: 04/13/25 Preoperative Diagnosis: Severe aortic stenosis, degenerative Postoperative Diagnosis: Same Procedure(s) Performed: Transaortic valve replacement with 29 mm [employer] bioprosthesis Implants: 29 mm [employer] evolute FX Anesthesia: GETA Surgeon: Jose Angel Farris Estimated Blood Loss (ml): 25 Pathology: none sent Condition: stable Disposition: ICU Indications for Procedure: Patient has known severe aortic stenosis and although relatively young has significant comorbid disease as well as morbid obesity with a BMI of 44.2 Operative Findings: Good valve apposition with only trace paravalvular leak Intermittent heart block with an escape rhythm of greater than 60 Good diastolic pressure Description of Procedure: After the patient was consented she was brought into the room and underwent general by endotracheal tube anesthesia. A timeout was observed whereby the patient, the procedure, the access, the personnel and the valve type were all discussed as was the delivery of antibiotics. Once that was all confirmed we proceeded with access to the bilateral groins we used ultrasound guidance and placed the delivery access on the left side in the left femoral artery and the diagnostic in the right femoral artery as well as the right femoral vein that was utilized for a temporary pacemaker. Once all access was complete, we placed a pigtail into the noncoronary sinus and verified its placement with a small puff of contrast. We then were able to access the left ventricle with a straight wire and appropriate catheter. Once access was obtained, we passed a relatively stiff wire into the ventricle (jens). We then passed the large sheath for predilation into the left femoral artery under vision of the fluoroscope. We then gave full dose heparin and ended up giving another 4000 of heparin total 2 achieve greater than 250 on our ACT. We then proceeded to remove the large sheath and after checking the valve was appropriately loaded and passed the valve through the left femoral artery. We observed the valve attempting to pass into the artery and unfortunately we had some difficulty and in removing the valve pulled the wire back out of the ventricle. We felt the wire was 1 kinked and 2. not stiff enough and decided to switch out the wire. We reaccessed the ventricle as before and then switched out the wire to a Lunderquist. Once that was accomplished we were able to more easily pass the valve and we followed up until we were across the [place] valve. We then deployed under rapid pacing and noted that the pigtail had pulled back slightly and our target was incorrect. We were clearly too high and elected to recapture and redeployed the valve. This was all done under rapid pacing and once we redeployed the valve it looked to be in perfect position both in the cusp overlap and coplanar views. We then made preparations to remove the delivery device but unfortunately the nose cone snagged one of the paddles in the ascending aorta and dislodged it. Upon evaluation with ALICIA we found that the valve had pulled back and was no longer in the [place] orifice. We thus used a snare to pull the valve further back giving us access to deploy a second valve. We checked a second 29 valve and gained access to the ventricle again. We then were able to advance and deploy a second 29 valve slightly deeper with excellent results and good hemodynamics. There was a short period of time where the patient was hypotensive allowing us to deploy the second valve without pacing and she recovered quickly after valve deployment and with some medication support. The echocardiogram showed minimal paravalvular leak and good hemodynamics as well as good valve motion. The EKG looked as if the patient had intermittent block and we elected to leave her on paced but kept the right groin temporary pacer in place. We made arrangements for her to go to the intensive care unit and she was decannulated for everything except the venous sheath and temporary pacemaker. Appropriate sealing devices were used per Dr. Fuller. The patient remained stable and was taken to recovery in good condition.
[2025-04-13] MEDS: INSULIN LISPRO (HumaLOG) 100 UNIT/ML 10 mL VL SQ SCH (11:59)
[2025-04-13] MEDS: LACTATED RINGERS 1,000 ML IV SCH ×2 (12:08→15:54)
[2025-04-13] MEDS: ARTIFICIAL TEARS-HYPROMELLOSE DROPS 15 ML BTL BOTH EYES SCH (12:08)
[2025-04-13 12:10] LABS: African American GFR (CKD) 52 (>60 ml/min/1.73 sqM); Anion Gap 11 mmol/L; Blood Urea Nitrogen 39 mg/dL (7-17); Carbon Dioxide 22 mmol/L (22-30); Chloride 107 mmol/L (98-107); Glucose 107 mg/dL (74-99); Non-African American GFR(CKD) 45 (>60 ml/min/1.73 sqM); Potassium 4.6 mmol/L (3.5-5.1); Sodium 140 mmol/L (137-145)
--- NOTE | 2025-04-13 12:17 | XR ---
EXAMINATION TYPE: XR chest 1V portable DATE OF EXAM: 04/13/2025 11:47 AM COMPARISON: Chest radiographs from 12/13/2024 CLINICAL INDICATION: Female, 70 years old with history of Post Operative Cardiac Surgery; [facility] TECHNIQUE: XR chest 1V portable Frontal view of the chest. FINDINGS: Lungs/Pleura: There is no evidence of pleural effusion, focal consolidation, or pneumothorax. Pulmonary vascularity: Unremarkable. Heart/mediastinum: Cardiomediastinal silhouette is unremarkable. Aortic stent grafts present. Cardiac conduction lead projecting over the heart inferiorly. Musculoskeletal: No acute osseous pathology. Right shoulder fixation hardware is intact. Other findings: None IMPRESSION: Low lung volumes, Postsurgical changes no evidence for heart failure at this time. [facility], , 04/13/2025 12:15 PM
[2025-04-13 14:36] LABS: Basophils # (A) 0.01 10*3/uL (0.00-0.10); Basophils % (A) 0.1 %; Eosinophils # (A) 0.21 10*3/uL (0.04-0.35); Eosinophils % (A) 2.5 %; HGB 12.8 g/dL (12.0-15.0); Lymphocytes # (A) 2.12 10*3/uL (0.90-5.00); Lymphocytes % (A) 25.4 %; MCH 30.3 pg (27.0-32.0); MCHC 33.7 g/dL (32.0-37.0); MCV 89.8 fL (80.0-97.0); Mean Platelet Volume 10.6 fL (9.5-12.2); Monocytes % (A) 7.2 %; Neutrophils # (A) 5.36 10*3/uL (1.80-7.70); Neutrophils % (A) 64.1 %; RBC 4.23 10*6/uL (4.10-5.20); RDW 14.6 % (11.5-14.5); WBC 8.36 10*3/uL (4.50-10.00)
[2025-04-13 15:00] LABS: RBC Morphology Normal
[2025-04-13 15:03] LABS: Platelet Count 91 10*3/uL (140-440)
[2025-04-13] MEDS: ACETAMINOPHEN TAB 325 MG TAB PO PRN (15:53)
[2025-04-13] MEDS: GABAPENTIN 400 MG CAP PO SCH (15:53)
[2025-04-13 17:39] LABS: Glucose,Whole Blood 167 mg/dL (70-110)
[2025-04-13 19:58] LABS: Glucose,Whole Blood 180 mg/dL (70-110)
[2025-04-13] MEDS: ceFAZolin 2 GM in DEXTROSE 5% IN WATER 50 ML IVPB SCH (21:15)
[2025-04-13] MEDS: SENNOSIDES-DOCUSATE SODIUM 1 EACH TAB PO SCH (21:54)
[2025-04-13] MEDS: MELATONIN 5 MG TABLET PO SCH (21:54)
[2025-04-13] MEDS: traZODone HCL 100 MG TAB PO SCH (21:54)
[2025-04-13] MEDS: ATORVASTATIN 80 MG TAB PO SCH (21:55)
[2025-04-14] MEDS: HEPARIN SODIUM,PORCINE 5,000 UNIT/ML 1 ML VIAL SQ SCH (00:59)
[2025-04-14 04:39] LABS: Ionized Calcium 4.6 mg/dL (4.5-5.3)
[2025-04-14 04:45] LABS: Basophils # (A) 0.02 10*3/uL (0.00-0.10); Basophils % (A) 0.3 %; Eosinophils # (A) 0.14 10*3/uL (0.04-0.35); Eosinophils % (A) 2.2 %; HCT 26.7 % (37.2-46.3); Lymphocytes # (A) 1.13 10*3/uL (0.90-5.00); Lymphocytes % (A) 17.7 %; MCH 30.2 pg (27.0-32.0); MCV 91.8 fL (80.0-97.0); Mean Platelet Volume 10.4 fL (9.5-12.2); Monocytes # (A) 0.36 10*3/uL (0.20-1.00); Monocytes % (A) 5.6 %; Neutrophils # (A) 4.69 10*3/uL (1.80-7.70); Neutrophils % (A) 73.6 %; RBC 2.91 10*6/uL (4.10-5.20); RDW 14.6 % (11.5-14.5); WBC 6.38 10*3/uL (4.50-10.00)
[2025-04-14 05:01] LABS: ALT 14 U/L (4-34); AST 24 U/L (14-36); African American GFR (CKD) 45 (>60 ml/min/1.73 sqM); Albumin 2.7 g/dL (3.5-5.0); Alkaline Phosphatase 52 U/L (38-126); Anion Gap 6 mmol/L; Blood Urea Nitrogen 35 mg/dL (7-17); Calcium 8.5 mg/dL (8.4-10.2); Carbon Dioxide 23 mmol/L (22-30); Chloride 108 mmol/L (98-107); Glucose 137 mg/dL (74-99); Non-African American GFR(CKD) 39 (>60 ml/min/1.73 sqM); Potassium 4.7 mmol/L (3.5-5.1); Sodium 137 mmol/L (137-145); Total Bilirubin 0.4 mg/dL (0.2-1.3); Total Protein 5.1 g/dL (6.3-8.2)
[2025-04-14 05:17] LABS: HGB 8.8 g/dL (12.0-15.0); Platelet Count 89 10*3/uL (140-440)
[2025-04-14 06:23] LABS: Glucose,Whole Blood 149 mg/dL (70-110)
--- NOTE | 2025-04-14 07:18 | XR ---
EXAMINATION TYPE: XR chest 1V portable DATE OF EXAM: 04/14/2025 5:24 AM COMPARISON: Chest radiograph from one day prior. CLINICAL INDICATION: Female, 70 years old with history of Post Operative Cardiac Surgery; [facility] TECHNIQUE: XR chest 1V portable Frontal view of the chest. FINDINGS: Lungs/Pleura: There is no evidence of pleural effusion, focal consolidation, or pneumothorax. Pulmonary vascularity: Unremarkable. Heart/mediastinum: Cardiomediastinal silhouette is unremarkable. Aortic stent grafts present. Cardiac conduction lead projecting over the heart inferiorly. Musculoskeletal: No acute osseous pathology. Right shoulder fixation hardware is intact. Other findings: None IMPRESSION: Similar Low lung volumes, Postsurgical changes no evidence for heart failure at this time. [facility], , 04/14/2025 7:16 AM
[2025-04-14 07:24] LABS: HCT 29.2 % (37.2-46.3); HGB 9.4 g/dL (12.0-15.0); MCHC 32.2 g/dL (32.0-37.0); MCV 93.3 fL (80.0-97.0); Mean Platelet Volume 10.7 fL (9.5-12.2); RBC 3.13 10*6/uL (4.10-5.20); RDW 14.6 % (11.5-14.5); WBC 6.98 10*3/uL (4.50-10.00)
[2025-04-14 07:30] LABS: Platelet Count 88 10*3/uL (140-440)
[2025-04-14] MEDS ORDERED: PANTOPRAZOLE 40 MG TABLET PO SCH (07:30)
[2025-04-14] MEDS ORDERED: METOPROLOL TARTRATE 12.5 MG TAB PO SCH (09:00)
[2025-04-14] MEDS ORDERED: MAGNESIUM HYDROXIDE 2,400 MG/30 ML CUP PO PRN (09:00)
[2025-04-14 09:03] VITALS: TEMP 98.4
[2025-04-14] MEDS: FAMOTIDINE 20 MG TAB PO SCH (09:09)
[2025-04-14] MEDS: amLODIPine 5 MG TAB PO SCH (09:09)
[2025-04-14] MEDS: CHOLECALCIFEROL 125 MCG (5000 IU) TABLET PO SCH (09:09)
[2025-04-14] MEDS: ASPIRIN 81 MG PO SCH (09:09)
[2025-04-14] MEDS: LORATADINE 10 MG TAB PO SCH (09:09)
[2025-04-14] MEDS: MULTIVITAMINS, THERA 1 EACH TAB PO SCH (09:09)
[2025-04-14] MEDS: FERROUS SULFATE 325 MG TAB PO SCH (09:09)
[2025-04-14] MEDS: ESCITALOPRAM 20 MG TAB PO SCH (09:10)
[2025-04-14] MEDS: DAPAGLIFLOZIN PROPANEDIOL 5 MG TABLET PO SCH (09:10)
[2025-04-14] MEDS: ARIPiprazole 2 MG TAB PO SCH (09:10)
[2025-04-14 11:24] LABS: Glucose,Whole Blood 181 mg/dL (70-110)
--- NOTE | 2025-04-14 11:35 | CA ---
Transthoracic Echo Report Name: Delia Kurtz Age: 70 Gender: F : 1955 Exam Date: 04/14/2025 08:01 Exam Location: [facility] Ht (in): 60 Wt (lb): 226 Ordering Physician: Sobeida Thorpe Attending/Referring Phys: [id number], [employer] Director Yashira Montiel RDCS Procedure CPT: Indications: post TAVR Cardiac Hx: TAVR Technical Quality: Technically difficult study Contrast 1: Definity Total Dose (mL): 2 Contrast 2: Total Dose (mL): MEASUREMENTS (Male / Female) Normal Values 2D ECHO LV Diastolic Diameter PLAX 4.7 cm 4.2 - 5.9 / 3.9 - 5.3 cm LV Systolic Diameter PLAX 3.4 cm IVS Diastolic Thickness 1.1 cm 0.6 - 1.0 / 0.6 - 0.9 cm LVPW Diastolic Thickness 1.0 cm 0.6 - 1.0 / 0.6 - 0.9 cm LV Relative Wall Thickness 0.4 RV Internal Dim ED PLAX 3.3 cm LVOT Diameter 1.7 cm LA Systolic Diameter LX 4.1 cm 3.0 - 4.0 / 2.7 - 3.8 cm LV Diastolic Volume MOD BP 69.8 cm??? 67 - 155 / 56 - 104 cm??? LV Systolic Volume MOD BP 22.2 cm??? 22 - 58 / 19 - 49 cm??? LV Ejection Fraction MOD BP 68.2 % >= 55 % LV Cardiac Index MOD BP 1730.1 cm???/min???m??? LV Diastolic Volume MOD 4C 74.9 cm??? LV Systolic Volume MOD 4C 26.8 cm??? LV Ejection Fraction MOD 4C 64.3 % LV Cardiac Index MOD 4C 1751.5 cm???/min???m??? LV Diastolic Length 4C 7.5 cm LV Systolic Length 4C 6.6 cm LV Diastolic Volume MOD 2C 63.9 cm??? LV Systolic Volume MOD 2C 17.7 cm??? LV Ejection Fraction MOD 2C 72.3 % LV Cardiac Index MOD 2C 1678.7 cm???/min???m??? LV Diastolic Length 2C 7.8 cm LV Systolic Length 2C 6.4 cm LA Volume 73.9 cm??? 18 - 58 / 22 - 52 cm??? LA Volume Index 34.4 cm???/m??? 16 - 28 cm???/m??? M-MODE Aortic Root Diameter MM 2.6 cm DOPPLER AV Peak Velocity 200.0 cm/s AV Peak Gradient 16.0 mmHg AV Mean Velocity 140.9 cm/s AV Mean Gradient 8.8 mmHg AV Velocity Time Integral 43.2 cm LVOT Peak Velocity 130.3 cm/s LVOT Peak Gradient 6.8 mmHg LVOT Velocity Time Integral 32.5 cm LVOT Stroke Volume 74.8 cm??? LVOT Stroke Volume Index 38.0 ml/m??? LVOT Cardiac Index 2717.2 cm???/min???m??? AV Area Cont Eq vti 1.7 cm??? AV Area Cont Eq pk 1.5 cm??? MV Area PHT 3.0 cm??? Mitral E Point Velocity 86.4 cm/s Mitral A Point Velocity 107.6 cm/s Mitral E to A Ratio 0.8 MV Deceleration Time 255.2 ms TR Peak Velocity 263.6 cm/s TR Peak Gradient 27.8 mmHg Right Ventricular Systolic Press 32.2 mmHg FINDINGS Left Ventricle Left ventricular ejection fraction is estimated at 55-60 %. Left ventricular cavity size normal. Mildly increased septal wall thickness. Normal left ventricular wall motion. Right Ventricle Mild right ventricular dilatation. Right ventricular systolic pressure within normal limits. Right Atrium Normal right atrial size. No right atrial thrombus or mass seen. Left Atrium Mildly increased left atrial diameter. Moderately increased left atrial volume. No left atrial thrombus or mass present. Mitral Valve Moderate thickening/calcification of the anterior mitral valve leaflet. Moderate thickening/calcification of the posterior mitral valve leaflet. Mild mitral annular calcification. No mitral stenosis. No evidence for mitral valve prolapse. No mitral regurgitation. Aortic Valve Normally functioning bioprosthetic aortic valve without stenosis with a peak velocity of 2.0 m/s, peak gradient 16 mmHg, mean gradient 9 mmHg, and estimated aortic valve area of 1.7 cm???. No central aortic regurgitation. Trace paravalvular aortic regurgitation. Tricuspid Valve Structurally normal tricuspid valve. Mild tricuspid regurgitation. Pulmonic Valve Structurally normal pulmonic valve. No pulmonic regurgitation. Pericardium No pericardial or pleural effusion. Aorta Normal size aortic root and proximal ascending aorta. CONCLUSIONS Normal LV size and systolic function. Mitral annular calcification with nonspecific thickening of mitral valve leaflets with mild mitral regurgitation. Aortic valve bioprosthesis noted patient had a percutaneous aortic valve implant no significant gradient trace aortic regurgitation paravalvular. No pericardial effusion Previewed by: Dr. Ingrid Ann MD (Electronically Signed) Final Date: 14 Apr 2025 11:34
[2025-04-14 13:11] VITALS: BMI 45.7
[2025-04-14 15:06] VITALS: RESP 23
--- NOTE | 2025-04-14 15:13 | P.DS ---
Providers Date of admission: 04/13/25 05:43 Expected date of discharge: 04/14/25 Attending physician: Alin Benites Consults: 04/08/25 06:29 Consult to Anesthesia Routine Consulting Provider: Anesthesia,Services Consult Reason/Comments: Cardiac Surgery Pre-Op 04/13/25 10:06 Consult Physician Routine Consulting Provider: Jose Angel Farris Consult Reason/Comments: post TAVR Do you want consulting provider notified?: Already Contacted Primary care physician: Keagan Campos DO Hospital Course: MEDICAL HISTORY: Calcified aortic valve with severe symptomatic aortic valve stenosis, NYHA III History of myocardial infarction Cardiac arrest in January 2023 Hypertension Hyperlipidemia Diabetes mellitus Chronic kidney disease CVA in 2022 PROCEDURE: Percutaneous aortic valve implantation using a 29 mm Evolute FX under ALICIA and fluoroscopy guidance Transesophageal echocardiography performed by anesthesia Ultrasound-guided access and repair of left femoral artery access site by Percl ose closure device and right femoral artery by angioseal Placement of temporary pacemaker wire Aortic root angiography HISTORY OF PRESENT ILLNESS: This is a 70-year-old female who follows on an outpa tient basis with Dr. Campos for primary care and Dr. Fuller for cardiology. She has a known history of severe aortic stenosis and has been symptomatic with increased exertional dyspnea as well as occasional chest pain. She had been referred to structural heart clinic for evaluation for transcatheter aortic valve replacement after heart catheterization and transesophageal echocardiogram were completed. Echocardiography demonstrated normal systolic function with EF 50%, aortic valve area 0.9 cm with a peak/mean gradient 73/44 mmHg. Heart catheterization showed normal coronaries. After workup was completed STS risk score was calculated along with incremental risk and the patient was felt to be high risk for surgical aortic valve replacement, therefore transcatheter aortic valve replacement was recommended. The usual course of TAVR was discussed in detail the patient, risks and benefits were reviewed, shared decision making between cardiology, surgery, and the patient/family took place, and the patient consented to proceed with the procedure. HOSPITAL COURSE: The patient was brought to the hospital on 04/13/25, was taken to the extended stay area, prepared in the usual fashion, and subsequently taken to the cardiac catheterization laboratory where Dr. Benites and Dr. Farris completed TAVR procedure under general anesthesia with fluoroscopy and ALICIA. The valve was deployed under rapid ventricular pacing but needed to be pulled back and a second TAVR valve deployed with excellent results. The patient did experience transient heart block so temporary transvenous pacer wire was left in place. At the end of the procedure there was no significant gradient, hemodynamics were felt to be acceptable, and there was no evidence of significant perivalvular leak. Upon completion of the procedure the patient was extubated and was transferred to the cardiovascular intensive care unit where she was recovered and monitored hemodynamically. She did not require pacing and her temporary pacer wire was discontinued. Her oxygen was titrated down, she was tolerating oral diet, her pain was controlled, follow-up TTE demonstrated normal left ventricular systolic function with EF 55-60%, mean gradient 9 mmHg, trace paravalvular leak and she was ready to be discharged to home on postoperative day #1. She received written and verbal instruction regarding her medications, activity restrictions, signs and symptoms requiring physician notification, and follow-up appointments. Patient Condition at Discharge: Stable Plan - Discharge Summary Discharge Rx Participant: No New Discharge Prescriptions: New Sennosides-Docusate Sodium [Senokot-S] 2 each PO HS PRN tab PRN Reason: Constipation Continue Artificial Tears-Hypromellose [Artificial Tear Drops] 1 drop BOTH EYES Q4H PRN PRN Reason: Dry Eye(S) Nystatin 100,000 Unit/gm Powd [Mycostatin Powder] 1 applic TOPICAL BID Atorvastatin [Lipitor] 80 mg PO HS Tirzepatide [Mounjaro] 2.5 mg SQ SA Multivit-Min/FA/Lycopen/Lutein [Centrum Silver Tablet] 1 tab PO DAILY Biotin 10 mg PO DAILY Levocetirizine Dihydrochloride [Xyzal] 5 mg PO DAILY Famotidine [Pepcid] 20 mg PO DAILY Escitalopram [Lexapro] 20 mg PO DAILY Empagliflozin [Jardiance] 10 mg PO DAILY amLODIPine [Norvasc] 5 mg PO DAILY #60 tab Diclofenac Sodium Gel [Voltaren 1% Gel] 1 applic TOPICAL DIRECTED Capsaicin Cream [Trixaicin Cream] 1 applic TOPICAL BID PRN PRN Reason: Pain Alendronate Sodium 70 mg PO WEEKLY Carboxymethylcellulos/Glycerin [Refresh Relieva 0.5-0.9% Drop] 1 drop BOTH EYES QID Nitroglycerin Sl Tabs [Nitrostat] 0.4 mg SL Q5M PRN PRN Reason: Chest Pain Buprenorphine [Butrans 20 MCG/HOUR] 1 patch TRANSDERM TU traZODone HCL 100 mg PO HS Ammonium Lactate Lotion [Lac-Hydrin 12% Lotion] 1 applic TOPICAL BID Melatonin 5 mg PO HS Gabapentin 800 mg PO TID Ferrous Sulfate [Iron (65 MG Elemental)] 325 mg PO DAILY Aspirin EC [Ecotrin Low Dose] 81 mg PO DAILY ARIPiprazole [Abilify] 2 mg PO DAILY Cholecalciferol (Vitamin D3) [Vitamin D3 (125 MCG = 5,000 IU)] 125 mcg PO DAILY Acetaminophen Tab [Tylenol] 650 mg PO Q4HR PRN tab PRN Reason: Fever And/ Or Pain Lidocaine/Diclofenac/Gabapenti 1 applic TOPICAL BID PRN PRN Reason: Pain Discharge Medication List ARIPiprazole [Abilify] 2 mg PO DAILY 11/29/24 [History] Ammonium Lactate Lotion [Lac-Hydrin 12% Lotion] 1 applic TOPICAL BID 11/29/24 [History] Artificial Tears-Hypromellose [Artificial Tear Drops] 1 drop BOTH EYES Q4H PRN 11/29/24 [History] Aspirin EC [Ecotrin Low Dose] 81 mg PO DAILY 11/29/24 [History] Atorvastatin [Lipitor] 80 mg PO HS 11/29/24 [History] Biotin 10 mg PO DAILY 11/29/24 [History] Buprenorphine [Butrans 20 MCG/HOUR] 1 patch TRANSDERM TU 11/29/24 [History] Cholecalciferol (Vitamin D3) [Vitamin D3 (125 MCG = 5,000 IU)] 125 mcg PO DAILY 11/29/24 [History] Empagliflozin [Jardiance] 10 mg PO DAILY 11/29/24 [History] Escitalopram [Lexapro] 20 mg PO DAILY 11/29/24 [History] Famotidine [Pepcid] 20 mg PO DAILY 11/29/24 [History] Ferrous Sulfate [Iron (65 MG Elemental)] 325 mg PO DAILY 11/29/24 [History] Gabapentin 800 mg PO TID 11/29/24 [History] Levocetirizine Dihydrochloride [Xyzal] 5 mg PO DAILY 11/29/24 [History] Melatonin 5 mg PO HS 11/29/24 [History] Multivit-Min/FA/Lycopen/Lutein [Centrum Silver Tablet] 1 tab PO DAILY 11/29/24 [History] Nitroglycerin Sl Tabs [Nitrostat] 0.4 mg SL Q5M PRN 11/29/24 [History] Nystatin 100,000 Unit/gm Powd [Mycostatin Powder] 1 applic TOPICAL BID 11/29/24 [History] Tirzepatide [Mounjaro] 2.5 mg SQ SA 11/29/24 [History] traZODone HCL 100 mg PO HS 11/29/24 [History] amLODIPine [Norvasc] 5 mg PO DAILY #60 tab 12/01/24 [Rx] Acetaminophen Tab [Tylenol] 650 mg PO Q4HR PRN tab 12/13/24 [Rx] Capsaicin Cream [Trixaicin Cream] 1 applic TOPICAL BID PRN 02/04/25 [History] Diclofenac Sodium Gel [Voltaren 1% Gel] 1 applic TOPICAL DIRECTED 02/04/25 [History] Lidocaine/Diclofenac/Gabapenti 1 applic TOPICAL BID PRN 02/04/25 [History] Alendronate Sodium 70 mg PO WEEKLY 04/08/25 [History] Carboxymethylcellulos/Glycerin [Refresh Relieva 0.5-0.9% Drop] 1 drop BOTH EYES QID 04/08/25 [History] Sennosides-Docusate Sodium [Senokot-S] 2 each PO HS PRN tab 04/14/25 [Rx] Follow up Appointment(s)/Referral(s): Chau Fuller DO [STAFF PHYSICIAN] - 04/26/25 9:30 am (Your appointment on April 26 is for groin check. You have a 30-day post TAVR echo and office visit with Dr. Fuller on 06/17/25 at 10:45 AM. You also have a 1 year post TAVR echo and office visit with Dr. Fuller 04/04/26 at 1:45 PM) Keagan Campos DO [Primary Care Provider] - [facility] Needed Clinic,[facility] [NON-STAFF] - 06/17/25 10:15 am (You also have a 1 year appointment at the TAVR clinic 04/04/26 @1:15 pm) Ambulatory/Diagnostic Orders: Basic Metabolic Panel [LAB.AMB] Location: None Selected Basic Metabolic Panel [LAB.AMB] Location: None Selected Complete Blood Count w/diff [LAB.AMB] Location: None Selected Complete Blood Count w/diff [LAB.AMB] Location: None Selected Activity/Diet/Wound Care/Special Instructions: DISCHARGE INSTRUCTIONS: 1. No driving for 1 week, or until physician gives their ok. 2. No lifting, pushing, or pulling more than 5-10 pounds for 1 week. 3. Hold both groins when you cough or sneeze for the next 2 weeks. Bruising is common, but report increased swelling, pain or fever >101F 4. Shower daily. No pool, hot tub, or bathtub for 1 week 5. No powders, lotions, ointments on incisions. 6. No straining, including for bowel movements. Use stool softner if necessary 7. Stairs are not an issue. Go slowly, using handrail and take 1 step at a time. Ambulate several times daily 8. Continue pain control per as needed orders. 9. Take only the medications listed on your discharge form 10. Eat low salt (limited to 2 grams or 2000 milligrams) daily, avoid adding salt, avoid canned/processed foods 11. Take your weight daily in the morning and record, bring with you to your follow up appointments 12. Keep all follow up appointments. You will need a valve clinic appointment at 30 days and 1 year post procedure for follow up 13. You have been referred to and are expected to begin Cardiac Rehab in approximately 4 weeks. 14. You will need antibiotics prior to any dental work, including cleanings, and any surgeries to prevent Endocarditis (bacterial infection in your heart) For any questions or concerns please call your valve coordinators: Sobeida or Puma @ Discharge Disposition: HOME SELF-CARE
[2025-04-14 16:09] VITALS: BP 94/59; PULSE 87
[2025-04-20] MEDS ORDERED: Alendronate Sodium 70 MG PO SCH (09:00)
== END 2025-04-14 17:01 | disposition home or self-care (01) | DRG 267 ==
LOC: 2ORMAIN 05:43 → 2SICU 10:45
PROVIDERS: ADMIT Internal Medicine Interventional Cardiology; ATTEND Internal Medicine Interventional Cardiology
PROC: B24BZZ4 Ultrasonography of Heart with Aorta, Transesophageal (ICD-10-PCS; 2025-04-13)
PROC: 5A1223Z Performance of Cardiac Pacing, Continuous (ICD-10-PCS; 2025-04-13)
PROC: 02RF38Z Replacement of Aortic Valve with Zooplastic Tissue, Percutaneous Approach (ICD-10-PCS; principal; 2025-04-13 08:00)
DX: I35.0 Nonrheumatic aortic (valve) stenosis (principal); Z00.6 Encounter for examination for normal comparison and control in clinical research program; I13.0 Hypertensive heart and chronic kidney disease with heart failure and stage 1 through stage 4 chronic kidney disease, or unspecified chronic kidney disease; I50.32 Chronic diastolic (congestive) heart failure; E11.22 Type 2 diabetes mellitus with diabetic chronic kidney disease; E66.01 Morbid (severe) obesity due to excess calories; N18.9 Chronic kidney disease, unspecified; Z68.41 Body mass index [BMI] 40.0-44.9, adult; T82.528A Displacement of other cardiac and vascular devices and implants, initial encounter; Z86.74 Personal history of sudden cardiac arrest; Y65.8 Other specified misadventures during surgical and medical care; Y92.234 Operating room of hospital as the place of occurrence of the external cause; I95.9 Hypotension, unspecified; I45.9 Conduction disorder, unspecified; E78.5 Hyperlipidemia, unspecified; I25.2 Old myocardial infarction; Z86.73 Personal history of transient ischemic attack (TIA), and cerebral infarction without residual deficits; Z86.79 Personal history of other diseases of the circulatory system; Z79.82 Long term (current) use of aspirin; Z79.899 Other long term (current) drug therapy; Z79.84 Long term (current) use of oral hypoglycemic drugs
CPT/HCPCS: 33361; 71045; 80048; 80053; 82330; 83735; 85025; 85027; 93306; 93312; 93320; 93325